=== PATIENT | female | born 1965 | race Two or more races ===

== ENCOUNTER → 2024-05-21 13:38 | Outpatient (BNVA) | payer OTHER, SELFPAY | PROVIDERS: Visit Provider Physician Assistant Surgical ==

== ENCOUNTER 2024-06-11 08:00 | Outpatient (AMB) | payer OTHER, SELFPAY ==
--- NOTE | 2024-06-11 11:01 | A.OFFVIS_ITS ---
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 Allergies No Known Allergies Allergy (Verified 06/11/24 11:01) Medication List - Last Reconciled 06/11/24 by Black Ram MD acetaminophen 500 mg PO Q6H PRN duloxetine mg PO hydrocortisone 2.5% appl topical DAILY levothyroxine 88 mcg PO DAILY meloxicam 15 mg PO DAILY multivitamin (One-A-Day Essential tablet) 1 tab PO DAILY trazodone 200 mg PO BEDTIME PRN triamcinolone acetonide 0.025% 1 appl topical BID HPI HPI 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: Details: Start time: 11.00am, End time: 11.36am ?I spent 31 minutes speaking with the patient on the phone plus an additional 5 minutes reviewing and updating records for a total of 36 minutes HPI Comments Details: Previous weight loss efforts: walking, self diets Wakes up: 7am, Sleeps: 11pm Breakfast: skips Lunch: skips Dinner: 3pm (pork chops, beans) Snacks: 12pm (chips), several after dinner (cereal, toast, crackers) Exercise: stationary bike at home Fluids: coffee: 5 cups/day (cream or sugar), tea: none, soda: Diet coke daily, juice: 1/month (apple juice), ETOH: none PFSH Medical History (Updated 06/11/24 @ 11:05 by Black Ram MD) Depression Hypothyroidism Insomnia DJD (degenerative joint disease) GERD (gastroesophageal reflux disease) Morbid obesity Surgical History (Updated 05/21/24 @ 14:13 by Christiane Francois CMA) Hx of shoulder surgery Hx of bladder repair surgery Family History (Updated 05/21/24 @ 14:14 by Christiane Francois CMA) Mother Thyroid condition Hypertension Father Alcohol abuse Social History (Updated 05/21/24 @ 14:15 by Christiane Francois CMA) Alcohol intake: former Patient Tobacco Use Status: Former Tobacco user Telehealth Telehealth Telehealth Platform: Telephone Location of provider rendering services: practice address Location of patient: address on file Patient Identification confirmed using: Name, : Yes Telehealth method: voice only Patient verbally consented to treatment: Yes Patient verbally consented to billing insurance company: Yes Patient informed of any privacy concerns related to visit: Yes Minutes spent on Phone/Video with Pt.: 36 Assessment & Plan Assessment & Plan (1) Morbid obesity: Code(s): E66.01 - Morbid (severe) obesity due to excess calories Category: Medical Plan: 1.? Plan for lap sleeve gastrectomy. If diaphragmatic or ventral hernias are present at time of surgery, these will be repaired laparoscopically as well. Risks and complications include possible conversion to an open procedure, anastomotic leak, bleeding requiring transfusion, small bowel obstruction, , DVT and pulmonary embolism, cardiac, or pulmonary complications, as intermediate complications such as anastomotic ulcer, insufficient weight loss and vitamin deficiencies. I emphasized the importance of close follow-up, adherence to instructions and good communication. 2. Nutritional counseling. Start with 2 CELEBRATE REBUILD protein (buy at [facility] [employer]) shakes (ONE scoop EACH in 8oz low fat unsweetened almond milk each) at 8am-10am and 11am-1pm, 1 protein bar (CELEBRATE protein bars, buy at [facility] [employer]) at 2pm-4pm, dinner at 5pm (8 forks of protein and 8 forks of salad/vegetables) AND one more protein bar after dinner at 7pm-9pm AND HALF protein bar at 10pm-11pm. So you do 2 protein shakes, 2.5 protein bars and one meal per day. Meal to include lean meat (beef, fish, pork, turkey, chicken), or hungarian yogurt, or egg whites, or beans with a salad with olive oil and fruits (berries, pears, apples, kiwi). Avoid salt, breads, potatoes, rice, pasta, desserts. 3. Each shake would be drunk slowly, like coffee in a period of 2 hours. 4. Cut each bar in 4 pieces and eat each piece in 30min ?to make each bar last 2 hours. 5. I emphasized the importance of measuring accurately the food portion and measure it when serving the food in plate 6. The meal portions include 8 full-size forks of meat and 8 full-size forks of salad. You always eat the meat portion but you can replace up to 4 forks for salad/vegetables with rice, potatoes or pasta, or a fruit ?if you like. The less you do it the better weight loss will be. 7. One full-size fork is what it can be scooped on the fork without falling aside and not what can be bit with the fork. Use regular forks like those you find in a typical restaurant. 8.? Please send me weight measurements as soon as possible and then once a week. Always include your diet and exercise plan. 9. Start stationary bike at a resistance level of 4.0 Increase level by 1.0 every 3 min to a max level of 10.0. Stay at this level for 3 min and then return to level 4.0 and repeat same steps until 300 calories are burned. Velocity target is 12mph and heart rate is 145 bpm. Goal is to burn 2000 calories per week on exercise 10. Goal is to lose at least 1.5-2lbs per week 11. Goal to lose 10% of your weight before surgery, which is about 24lbs. Ultimate weight goal: 220lbs before surgery 12. Please follow the diet plan exactly without any change. If you don't like something about the plan or you feel hungry you need to communicate with me so I can help you revise the plan. You should not change the plan yourself. 13. To be scheduled for EGD due to history of GERD. The possibility of biopsies was discussed. Patient needs to avoid use of NSAIDs and aspirin for 1 week prior to EGD. Risks of perforation and bleeding was discussed with the patient. This will be an outpatient procedure with IV sedation. Orders: Orders Insulin Today E03.9 - Hypothyroidism, unspecified, E66.01 - Morbid (severe) obesity due to excess calories, K21.9 - Gastro-esophageal reflux disease without esophagitis Hemoglobin A1c Today E03.9 - Hypothyroidism, unspecified, E66.01 - Morbid (severe) obesity due to excess calories, K21.9 - Gastro-esophageal reflux disease without esophagitis H Pylori Breath Test Today E03.9 - Hypothyroidism, unspecified, E66.01 - Morbid (severe) obesity due to excess calories, K21.9 - Gastro-esophageal reflux disease without esophagitis Complete Blood Count Auto Diff Today E03.9 - Hypothyroidism, unspecified, E66.01 - Morbid (severe) obesity due to excess calories, K21.9 - Gastro- esophageal reflux disease without esophagitis IRON PROFILE Today E03.9 - Hypothyroidism, unspecified, E66.01 - Morbid (severe) obesity due to excess calories, K21.9 - Gastro-esophageal reflux dis ease without esophagitis Comprehensive Met. Panel Today E03.9 - Hypothyroidism, unspecified, E66.01 - Morbid (severe) obesity due to excess calories, K21.9 - Gastro-esophageal reflux disease without esophagitis Zinc Today E03.9 - Hypothyroidism, unspecified, E66.01 - Morbid (severe) obesity due to excess calories, K21.9 - Gastro-esophageal reflux disease without esophagitis C Reactive Protein Today E03.9 - Hypothyroidism, unspecified, E66.01 - Morbid (severe) obesity due to excess calories, K21.9 - Gastro-esophageal reflux disease without esophagitis TSH reflex Free T4 Today E03.9 - Hypothyroidism, unspecified, E66.01 - Morbid (severe) obesity due to excess calories, K21.9 - Gastro-esophageal reflux disease without esophagitis Vitamin D 25-OH Total Today E03.9 - Hypothyroidism, unspecified, E66.01 - Morbid (severe) obesity due to excess calories, K21.9 - Gastro-esophageal reflux disease without esophagitis US abdomen comp w elastography Today E03.9 - Hypothyroidism, unspecified, E66.01 - Morbid (severe) obesity due to excess calories, K21.9 - Gastro- esophageal reflux disease without esophagitis XR chest 2V Today E03.9 - Hypothyroidism, unspecified, E66.01 - Morbid (severe) obesity due to excess calories, K21.9 - Gastro-esophageal reflux disease without esophagitis ECG 12 lead EKG Today E03.9 - Hypothyroidism, unspecified, E66.01 - Morbid (severe) obesity due to excess calories, K21.9 - Gastro-esophageal reflux disease without esophagitis Lipid Panel Today E03.9 - Hypothyroidism, unspecified, E66.01 - Morbid (severe) obesity due to excess calories, K21.9 - Gastro-esophageal reflux disease without esophagitis Vitamin B12 and Folate Today E03.9 - Hypothyroidism, unspecified, E66.01 - Morbid (severe) obesity due to excess calories, K21.9 - Gastro-esophageal reflux disease without esophagitis Vitamin B1 Today E03.9 - Hypothyroidism, unspecified, E66.01 - Morbid (severe) obesity due to excess calories, K21.9 - Gastro-esophageal reflux disease without esophagitis Vitamin A Today E03.9 - Hypothyroidism, unspecified, E66.01 - Morbid (severe) obesity due to excess calories, K21.9 - Gastro-esophageal reflux disease without esophagitis Ferritin Today E03.9 - Hypothyroidism, unspecified, E66.01 - Morbid (severe) obesity due to excess calories, K21.9 - Gastro-esophageal reflux disease without esophagitis FL upper GI w air Today E03.9 - Hypothyroidism, unspecified, E66.01 - Morbid (severe) obesity due to excess calories, K21.9 - Gastro-esophageal reflux disease without esophagitis Referrals Behavioral Health Referral E03.9 - Hypothyroidism, unspecified, E66.01 - Morbid (severe) obesity due to excess calories, K21.9 - Gastro-esophageal reflux disease without esophagitis Nutrition/Dietitian Referral E03.9 - Hypothyroidism, unspecified, E66.01 - Morbid (severe) obesity due to excess calories, K21.9 - Gastro-esophageal reflux disease without esophagitis
[2024-06-11 11:13] VITALS: BMI 44.5
== END 2024-06-11 11:37 | disposition home or self-care (01) ==
LOC: HO.HBS 08:00
PROVIDERS: Visit Provider Surgery
DX: E66.813 Obesity, class 3 (principal); Z68.41 Body mass index [BMI] 40.0-44.9, adult
CPT/HCPCS: 99443

== ENCOUNTER → 2024-06-11 08:00 | Outpatient (BNVA) | payer OTHER, SELFPAY | PROVIDERS: Visit Provider Surgery ==

== ENCOUNTER 2024-06-14 10:57 | Outpatient (REF) | payer OTHER, SELFPAY ==
[2024-06-14 11:53] LABS: MANUAL DIFF FLAG NO
[2024-06-14 12:21] LABS: Basophils Percent Auto 0.5 % (0-2); Eosinophils Absolute Auto 0.1 X10*3/uL (0.0-0.4); Eosinophils Percent Auto 1.2 % (0-4); Hemoglobin 13.8 g/dl (12.0-16.0); Imm Gran Abs Auto 0.04 X10*3/uL (0.00-0.03); Imm Gran Pct Auto 0.5 % (0.0-0.4); Lymphocytes Absolute Auto 2.1 X10*3/uL (1.2-4.9); Lymphocytes Percent Auto 27.2 % (20-40); Mean Corpuscular HGB Conc 32.1 g/dl (31.0-35.0); Mean Corpuscular Hemoglobin 30.1 pg (27.0-33.0); Mean Corpuscular Volume 93.9 fL (80.0-98.0); Monocytes Absolute Auto 0.5 X10*3/uL (0.1-1.2); Monocytes Percent Auto 6.6 % (2-11); Neutrophils Absolute Auto 4.8 x10*3/uL (2.0-8.3); Platelet Count 287 X10*3/uL (160-400); Red Blood Count 4.58 X10*6/uL (4.20-5.50); Red Cell Distribution Width 12.6 % (11.0-16.0); White Blood Count 7.5 X10*3/uL (4.8-10.8)
[2024-06-14 13:17] LABS: Alanine Aminotransferase 37 U/L (0-31); Albumin Level 4.4 g/dL (3.5-5.0); Alkaline Phosphatase 70 U/L (39-117); Anion Gap 11 (12-20); Aspartate Amino Transferase 23 U/L (5-31); Bilirubin Total 0.4 mg/dL (0.0-1.0); Blood Urea Nitrogen 18 mg/dL (9-16); Calcium 10.3 mg/dL (8.4-10.2); Carbon Dioxide 30 mmol/L (22-29); Chloride 106 mmol/L (96-108); Cholesterol 200 mg/dL (<200); Estimated Glomerular Filt Rate > 60; Glucose Random 106 mg/dL (60-115); HDL Cholesterol 65 mg/dL (>40); Iron 99 mcg/dL (30-160); LDL Cholesterol Calculated 110 mg/dL (<100); Percent Iron Saturation 32 % (15-50); Potassium 4.4 mmol/L (3.3-5.1); Sodium 143 mmol/L (135-145); Total Iron Binding Capacity 314 mcg/dL (228-428); Total Protein 7.7 g/dL (6.5-8.0); Triglycerides 125 mg/dL (<150); Unsaturated Iron Binding 215 ug/dL
[2024-06-14 13:24] LABS: Estimated Average Glucose 114 mg/dL; Hemoglobin A1c % 5.6 % (<6.0); Total Hemoglobin (HGBA1C) 5363.0453 umol/L
[2024-06-14 13:38] LABS: Ferritin 223 ng/mL (10-250); TSH reflex Free T4 4.42 uIU/mL (0.32-4.0); Vitamin D 25-OH Total 31.7 ng/mL (>30)
[2024-06-14 13:40] LABS: Folate 15.1 ng/mL (> or = 4.0); Vitamin B12 336 pg/mL (200-900)
[2024-06-14 15:04] LABS: Free T4 (Free Thyroxine) 1.05 ng/dL (0.71-1.85); Insulin 18 uU/mL (2-29)
[2024-06-18 00:18] LABS: Zinc 94 mcg/dL (60-130)
[2024-06-20 15:39] LABS: Vitamin B1 16 nmol/L (8-30)
[2024-06-22 02:44] LABS: Vitamin A 79 mcg/dL (38-98)
== END 2024-06-14 10:58 | disposition home or self-care (01) ==
LOC: HO.XRAY 10:57
PROVIDERS: Visit Provider Surgery
DX: E66.01 Morbid (severe) obesity due to excess calories (principal); E03.9 Hypothyroidism, unspecified; K21.9 Gastro-esophageal reflux disease without esophagitis
CPT/HCPCS: 36415; 71046; 80053; 80061; 82306; 82607; 82728; 82746; 83036; 83525; 83540; 84425; 84439; 84443; 84590; 84630; 85025; 86140

== ENCOUNTER 2024-06-25 09:38 | Outpatient (REF) | payer OTHER, SELFPAY | END 2024-06-25 09:39 | disposition home or self-care (01) | LOC: HO.US 09:38 | PROVIDERS: Visit Provider Surgery | DX: E66.01 Morbid (severe) obesity due to excess calories (principal); E03.9 Hypothyroidism, unspecified; K21.9 Gastro-esophageal reflux disease without esophagitis | CPT/HCPCS: 76700; 76981 ==

== ENCOUNTER → 2024-06-25 09:40 | Outpatient (BNV) | payer OTHER, SELFPAY | PROVIDERS: Visit Provider Radiology Diagnostic Radiology | DX: E66.01 Morbid (severe) obesity due to excess calories (principal) | CPT/HCPCS: 76700 ==

== ENCOUNTER → 2024-07-23 14:15 | Outpatient (AMB) | payer OTHER, SELFPAY ==
--- NOTE | 2024-07-23 14:10 | A.OFFWM_ITS ---
Intake Intake Visit Reasons: VIDEO BH Intake Allergies No Known Allergies Allergy (Verified 06/11/24 11:01) [facility] Medical History (Updated 08/25/24 @ 09:58 by Candace Leblanc [facility]) Depression Hypothyroidism Insomnia DJD (degenerative joint disease) GERD (gastroesophageal reflux disease) Morbid obesity Surgical History (Updated 05/21/24 @ 14:13 by Christiane Francois CMA) Hx of shoulder surgery Hx of bladder repair surgery Family History (Updated 05/21/24 @ 14:14 by Christiane Francois CMA) Mother Thyroid condition Hypertension Father Alcohol abuse Social History (Updated 05/21/24 @ 14:15 by Christiane Francois CMA) Alcohol intake: former Patient Tobacco Use Status: Former Tobacco user Behavioral Health Assessment Weight Management Therapy Therapy Notes Details PT is a 58 years old female, who presents for initial visit to complete BH assessment as part of surgical weight loss program. PT is still unsure about having weight-loss surgery but her goal is to lose weight, become healthier and being able to maintain what she lose. Presenting Concerns Referral Source WMP-Provider. initial visit with Dr. Krueger on 06/11/2024 Reason for referral Completion of behavioral health assessment as part of process for weight-loss surgery. Precipitating Event Obesity. Initial weight: 243Lbs. Living Situation Current Living Situation Rent At risk of losing current housing? No Satisfied with current living situation? Yes Comments PT lives alone with her dog. Food/Weight/Diet Expectations of change PT started program on 06/11/2024 and had initial visit with Dr. Krueger. Per provider's note initial Goal to lose 10% of your weight before surgery, which is about 24lbs. Ultimate weight goal: 220lbs before surgery. She's expected to loss 1.5-2lbs per week. Patient goals are PT is implementing the following: Current meal plan: 2 protein shakes, 2.5 protein bars and one meal per day. Exercise plan: stationary bike. Daily, goal is to burn 300 calories for total of are burned 2000 calories per week on exercise History/Relationship with food Example of meals before starting the program: Breakfast: Lunch: Dinner: Snacks: Drinks/Liquids: History/Relationship with weight She was always a normal weight in childhood. PT reports 4 years ago she stop smoking and drinking and started compensating with food. Leading to binge, snack and overeat. states that in 2019 she was around 150Lbs, and in between [id number] she started putting weight on. Current weight: 250Lbs is her highest weight. History/Relationship with dieting Different diets and programs. 2022- attended services at [facility] [employer], with a sap bw developer. Attended 2 sessions. didn't lose weight. Social History Family history and relationship PT is . Never had children. Bio-father is . Mom and step-dad (who raised her) are alive. She has total of 8 siblings. PT report good family relationships. Parental/Familial avid editor obligations None Developmental history and status WNL. Social support Sisters, mother. Community support Siblings per [place]. Christianity/Spirituality [employer]ism. 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 Cultural/Ethnic information . [place] Parents born in [place]. Legal Involvement and History Current or historical involvement with the legal system? None reported. Education Highest grade completed 11th grade. GED. Currently enrolled in educational program? No Interested in further educational program? 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 Employment Employment Status Unemployed and Other (Receives Social security 2 years ago.) Wants help to find employment? No Meaningful activities walks, [place]-based activities. Financial Situation Describe current financial situation Comfortable and Occasional struggle Financial assistance? [employer] and Other (Insurance. ) Service Service? No Mental Health and Addiction Treatment Current/Past substance abuse? Yes Comments Alcohol: None currently Cigarettes/Tobacco: None currently Cannabis/Edibles: None. Current/Past addictive behavior concerns? No Psychiatric history PT reports a history of depression, currently stable. But still has mild depressive episodes. She attends outpatient psychiatric services every 2-3 months. PT sees a prescriber/psychiatrist in [facility] and gets prescribed with: - Topiramate 25mg - Trazodone 200mg - Duloxetine 60mg She used to be a heavy drinker 4 years ago. She was drinking daily, at least 10 beers and at least 2 shots of vodka. She was also a heavy smoker, was smoking 1 and a half box at day. PT has had BH crisis in the past but never inpatient for mental health. There is no history and/or current concern about SI/SA and self-harm or other harm. Questionnaires PHQ-9 Over the last 2 weeks, how often have you been bothered by any of the following problems? 1. Little interest or pleasure in doing things: not at all 2. Feeling down, depressed, or hopeless: not at all 3. Trouble falling or staying asleep, or sleeping too much: nearly every day 4. Feeling tired or having little energy: more than half the days 5. Poor appetite or overeating: nearly every day (overeating ) 6. Feeling bad about yourself - or that you are a failure or have let yourself or your family down: several days 7. Trouble concentrating on things, such as reading the newspaper or watching television: more than half the days 8. Moving or speaking so slowly that other people could have noticed. Or the opposite - being so fidgety or restless that you have been moving around a lot more than usual: not at all 9. Thoughts that you would be better off or of hurting yourself in some way: not at all Total score: 11 Depression Screening Interpretation: Positive (Scores from new PT pack, scanned on 06/11/24. New phq-9 will be administered at next visit. ) Depression Screening Done: Yes Source: Developed by Drs. Lj Rao, Tatum Bruno, Dhaval Mckeon and colleagues, with an educational carmen from [employer]. Binge Eating Scale Group 1 A. I don't feel self-conscious about my wt. or body size when I'm with others. B. I feel concerned about how I look to others, but it normally does not make me fell disappointed with myself C. I do get self-conscious about my appearance and wt. which makes me feel disappointed in myself. D. I feel very self-conscious about my wt. and frequently I feel intense shame and disgust for myself. I try to avoid social contacts because of my self- consciousness. Response Group 1: B Group 2 A. I don't have any difficulty eating slowly in the proper manner. B. Although I seem to gobble down foods, I don't end up feeling stuffed because of eating to much. C. At times, I tend to eat quickly and then, I feel uncomfortably full afterwards. D. I have the habit of bolting down my food, without really chewing it. When this happens I usually feel uncomfortably stuffed because I've eaten to much. Response Group 2: B Group 3 A. I feel capable to control my eating urges when I want to. B. I feel like I have failed to control my eating more than the average person. C. I feel utterly helpless when it comes to feeling in control of my eating urges. D. Because I feel so helpless about controlling my eating I have become very desperate about trying to get control. Response Group 3: B Group 4 A. I don't have the habit of eating when I'm bored. B. I sometimes eat when I'm bored, but often I'm able to get busy and get my mind off food. C. I have a regular habit of eating when I'm bored, but occasionally, I can use some other activity to get my mind off eating. D. I have a strong habit of eating when I'm bored. Nothing seems to help me breath the habit. Response Group 4: D Group 5 A. I'm usually physically hungry when I eat something. B. Occasionally, I eat something on impulse even though I really am not hungry. C. I have the regular habit of eating foods, that I might not really enjoy, to satisfy a hungry feeling even though physically, I don't need the food. D. Although I'm not physically hungry, I get a hungry feeling in my mouth that only seems to be satisfied when I eat a food, like sandwich, that fills my mouth. Sometimes, when I eat the food to satisfy my mouth hunger, I then spit the food out so I won't gain weight. Response Group 5: C Group 6 A. I don't feel any guilt or self-hate after I overeat. B. After I overeat, occasionally I feel guilt or self-hate. C. Almost all the time I experience strong guilt or self-hate after I overeat. Response Group 6: B Group 7 A. I don't lose total control of my eating when dieting even after periods when I overeat. B. Sometimes when I eat a forbidden food on a diet, I feel like I blew it and eat even more. C. Frequently, I have the habit of saying to myself, I've blown it now, why not go all the way, when I overeat on a diet. When that happens I eat more. D. I have a regular habit of starting a strict diets for myself but I break the diets by going on an eating binge. My life seems to be either a feast or famine. Response Group 7: B Group 8 A. I rarely eat so much food that I feel uncomfortably stuffed afterwards. B. Usually about once a month, I each such a quantity of food, I end up feeling very stuffed. C. I have regular periods during the month when I eat large amounts of food, either at mealtime or at snacks. D. I eat so much food that I regularly feel quite uncomfortable after eating and sometimes a bit nauseous. Response Group 8: C Group 9 A. My level of calorie intake does not go up very high or go down very low on a regular basis. B. Sometimes after I overeat, I will try to reduce my caloric intake to almost nothing to compensate for the excess calories I've eaten. C. I have a regular habit of overeating during the night. It seems that my routine is not to be hungry in the morning but overeat in the evening. D. In my adult years, I have had week-long periods where I practically starve myself. This follows periods when I overeat. It seems I live a life of either feast or famine. Response Group 9: C Group 10 A. I usually am able to stop eating when I want to. I know when enough is enough. B. Every so often, I experience a compulsion to eat which I can't seem to control. C. Frequently, I experience strong urges to eat which I seem unable to control, but at other times I can control my eating urges. D. I feel incapable of controlling urges to eat. I have a fear of not being able to stop eating voluntarily. Response Group 10: D Group 11 A. I don't have any problem stopping eating when I feel full. B. I usually can stop eating when I feel full but occasionally overeat leaving me feeling uncomfortably stuffed. C. I have a problem stopping eating once I start and usually I feel uncomfortably stuffed after I eat a meal. D. Because I have a problem not being able to stop eating when I want, I sometimes have to induce vomiting to relieve my stuffed feeling. Response Group 11: C Group 12 A. I seem to eat just as much when I'm with others, Family social gatherings as when I'm by myself. B. Sometimes, when I'm with other persons, I don't eat as much as I want to eat because I'm self-conscious about my eating. C. Frequently, I eat only a small amount of food when others are present, because I'm very embarrassed about my eating. D. I feel so ashamed about overeating that I pick times to overeat when I know no one will see me. I feel like a closet eater. Response Group 12: C Group 13 A. I eat three meals a day with only an occasional between meal snack. B. I eat 3 meals a day, but I also normally snack between meals. C. When I am snacking heavily, I get in the habit of skipping regular meals. D. There are regular periods when I seem to be continually eating, with no planned meals. Response Group 13: C Group 14 A. I don't think much about trying to control unwanted eating urges. B. At least some of the time, I feel my thoughts are pre-occupied with trying to control my eating urges. C. I feel that frequently I spend much time thinking about how much I ate or about trying not to eat anymore. D. It seems to me that most of my waking hours are pre-occupied by thoughts about eating or not eating. I feel like I'm constantly struggling not to eat. Response Group 14: B Group 15 A. I don't think about food a great deal. B. I have strong craving for food but they last only for brief periods of time. C. I have days when I can't seem to think about anything else but food. D. Most of my days seem to be pre-occupied with thoughts about food. I feel like I live to eat. Response Group 15: C Group 16 A. I usually know whether or not I'm physically hungry. I take the right portion of food to satisfy me. B. Occasionally, I feel uncertain about knowing whether or not I'm physically hungry. A these times it's hard to know how much food I should take to satisfy me. C. Even though I might know how many calories I should eat, I don't have any idea what is a normal amount of food for me. Response Group 16: C Binge Eating Score: 28 Score less than 17 Minimal Risk Score between 18-26 Moderate Risk Score between 27-46 High Risk Assessment & Plan Assessment & Plan (1) Depression: Code(s): F32.A - Depression, unspecified Qualifiers: Depression Type: major depressive disorder Major depression recurrence: recurrent Major depression episode severity: unspecified Plan Not cleared. We will meet again to finish assessment. PT also, was open about her need for extra support as she is not following meal plan and is still unsure if surgery is the right option for her. Next janes: 08/20/2024 at 2pm, per client's request as she can only do after 2pm. She was offered sooner spaces but she declined. Telehealth Telehealth [facility]health [facility]: [facility] Location of provider rendering services: other Location of patient: address on file Patient Identification confirmed using: Name, : Yes Telehealth method: video Patient verbally consented to treatment: Yes Patient verbally consented to billing insurance company: Yes Patient informed of any privacy concerns related to visit: Yes Minutes spent on Phone/Video with Pt.: 50 Coding Level of Care Code New Pt Tele Psy Diag Yayo ([id number]) Patient Type New Diagnoses Depression F32.A Depression Type: major depressive disorder Major depression recurrence: recurrent Major depression episode severity: unspecified Time Spent (min) 50
--- OUTSIDE RECORDS SUMMARY | 2024-07-23 14:17 | XMS_ITS | Data Portability ---
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 968250496 Active 2018 Elidia Westbrook [facility] 0 15:42:45 History of breast problem 049130991 Completed 10/25/2020 [facility]ading[facility] 1 10:45:02 Bilatera l plantar fasciiti s 25802433497 850808 [facility] 1 14:18:20 Calcanea l spur 39793741 Active ISSA Avendano, [facility] 1 14:18:31 Major depressi on single episode, in partial remissio n 07083144 Active 2021 Gris Clayding-Lin fisher [facility] 2 12:48:46 Steatosi s of liver 491115866 Active 2021 seen on LDCT Gris lipscomb phillip, [facility] 2 12:28:46 Hypothyr oidism 29434759 Active 2021 Gris ClaystarKaryLin deisi phillip [facility] 2 10:59:57 Hyperlip idemia 95616386 Active 2022 Sowmya Ashby, PASUP [address] [address], [place], [address] , [facility] 3 14:01:56 Spasm of muscle of lower back 97443767377 932735 Active 2022 Sowmya Ashby, PASUP [address] [address], [place], [address] , [facility] 3 14:13:46 Psoriasi s 6731895 Active 2022 Sowmya Ashby, PASUP [address] [address], [place], [address] , [facility] 3 15:30:22 Keratosi s pilaris 9425488 Active 2022 Sowmya Ashby, PASUP [address] [address], [place], [address] , [facility] 3 15:31:00 Eruption 988154089 Completed 202203/30/2024 RECORDED 12/05/19 13 4:28PM BY TRUPTI CROWELL MA, ANNOTATI ON/ANIBAL LYONS MD [address] [address], [place], [address] , [facility] 4 08:02:30 Multinod ular goiter 319507292 Active 2023 repeat u/s 12/2024 YENIFER LYONS MD [address], [place], [address] , [facility] 4 17:11:39 Prediabe piyush 175978281 Active 2023 YENIFER LYONS MD [address], [place], [address] , [facility] 4 11:00:49 Morbid obesity 720318560 Active Shantel Bowles MA null, [facility] 4 11:41:18 Benign neoplasm of adrenal gland 62257072 Completed 02/12/2017 Gris fisher, [facility] 7 21:57:21 Adult health examinat ion Completed 02/12/2017 Mariam Freitas MA null, [facility] 7 15:57:20 Screenin g for malignan t neoplasm of breast Completed 02/12/2017 Gris fisher, [facility] 7 21:56:51 Screenin g for malignan t neoplasm of breast Completed 201202/22/2014 IMPRESSI ON: PT WILL SET UP MAMMO; RECORDED 12/05/19 13 4:28PM BY TRUPTI CROWELL MA, ANNOTATI ON/ADDEN DUM Gris fisher, [facility] 7 21:56:51 Breast finding [id number] Completed 201302/22/2014 IMPRESSI ON: BILATERA L, ONLY WHEN EXPRESSE D, NO BLOOD, NL TSH AND PROLACTI N, WILL REFER TO [facility], LEFT MESSAGE FOR PT ON HER MACHINE ABOUT NL LABS AND APPOINTM ENT TO BE BOOKED; RECORDED 12/01/19 14 4:32PM BY ZULMA EMMANUEL MA, ANNOTATI ON/ADDEN DUM MYA Baker [address], [place], [address] , [facility] 6 10:19:41 Kidney stone 43824038 Com[facility]12[facility]2017 [facility] 7 21:57:27 Carpal tunnel syndrome 42652330 Completed 02/12/2017 Gris fisher, [facility] 7 21:57:08 Screenin g for malignan t neoplasm of cervix Completed 201302/22/2014 RECORDED 12/01/19 14 4:32PM BY ZULMA EMMANUEL MA, ANNOTATI ON/ADDEN DUM Sowmya Ashby, [facility] [address], [place], [address] , [facility] 6 10:19:41 Chest pain 21160082 Completed 201302/22/2014 RECORDED 12/01/19 14 4:32PM BY ZULMA EMMANUEL MA, HORACIO ON/ADDEN DUM Sowmya Ashby, [facility] [address], [place], [address] , [facility] 6 10:19:41 Conjunct ivitis 9925695 Completed 201302/22/2014 RECORDED 12/01/19 14 4:32PM BY ZULMA EMMANUEL MA, HORACIO ON/ADDEN DUM Sowmya Ashby, PASUP [address], [place], [address] , [facility] 6 10:19:41 Constipa tion 83498936 Completed 201202/22/2014 IMPRESSI ON: CT SHOWED THIS. TAKE MIRALX FOR 1 WEEK. PER PT HX SHE DOES NOT HAVE CHRONIC CONSTIPA TION; RECORDED 12/05/19 13 4:28PM BY TRUPTI CROWELL MA, ANNOTATI ON/ADDEN DUM Sowmya Ashby, PASUP [address], [place], [address] , [facility] 6 10:19:41 Cough 85284513 Completed 201202/22/2014 IMPRESSI ON: WILL GET SPIROMET RY TO ASSESS SAPPHIRE FUNCTION AFTER SMOKING FOR SO LONG, REVIEWED WITH PT, NO INHALERS NEEDED, PT TO QUIT BEFORE NEXT YEAR, NO NEED FOR CXR, NO CONSISTE NT COUGH; RECORDED 12/05/19 13 4:28PM BY TRUPTI CROWELL MA, HORACIO ON/ANIBAL Ashby, [facility] [address] [facility] [address], [place], [address] , [facility] 6 10:19:41 Tobacco dependen ce syndrome 99445179 Completed 10/02/2016 [facility] 7 11:23:26 Dysuria 16183172 Completed 201202/22/2014 IMPRESSI ON: I DOUBT THE DYSURIA AND BACK PAIN ARE CONNECTE D. ALTHOUGH OUR UA IS NORMAL I WOULD STILL LIKE TO TREAT EMPIRICA LLY FOR UTI IN CASE THE 2 ARE RELATED. ; RECORDED 12/05/19 13 4:27PM BY TRUPTI CROWELL MA, ANNOTATI ON/ANIBAL Ashby, [facility] [address] [address], [place], [address] , [facility] 6 10:19:41 Elevated blood-pr essure reading without diagnosi s of hyperten mayur 674133512 Completed 201302/22/2014 RECORDED 12/18/19 14 9:29AM BY TRUPTI CROWELL MA, ANNOTATI ON/ANIBAL Ashby, [facility] [address] [address], [place], [address] , [facility] 6 10:19:41 Malaise and fatigue 255979047 Completed 201302/22/2014 IMPRESSI ON: CHECK LABS; RECORDED 12/01/19 14 4:32PM BY ZULMA EMMANUEL MA, RITAATI ON/ADDEN DUM Sowmya Ashby, PASUP [address], [place], [address] , [facility] 6 10:19:41 General examinat ion of patient Completed 200902/22/2014 DATE: 09/01/19 10; RECORDED 12/05/19 13 4:28PM BY TRUPTI CROWELL MA, HORACIO ON/ADDEN DUM [facility]antel Bowles [facility] 7 11:22:52 Well child 072447498 Completed 201202/22/2014 RECORDED 12/05/19 13 4:27PM BY TRUPTI CROWELL MA, HORAICO ON/ADDEN DUM Sowmya Ashby, [facility] [address] [facility], [place], [address] , [facility] 6 10:19:41 Blood in urine 22492443 Completed 201202/22/2014 IMPRESSI ON: RECHECK URINE, NEG HERE , NO FURTHER WORKUP IF ALL OK; RECORDED 12/05/19 13 4:28PM BY TRUPTI CROWELL MA, HORACIO ON/ADDEN DUM Sowmya Ashby, [facility] [address] [facility], [place], [address] , [facility] 6 10:19:41 Pure hypercho lesterol emia 206415328 Completed 201202/22/2014 RECORDED 12/05/19 13 4:28PM BY TRUPTI CROWELL MA, HORACIO ON/ADDEN DUM Sowmya Ashby, [facility] [address] [facility], [place], [address] , [facility] 6 10:19:40 Viral labyrint hitis 150104344 Completed 201202/22/2014 RECORDED 12/05/19 13 4:28PM BY TRUPTI CROWELL MA, HORACIO ON/ADDEN DANDY Ashby, [facility] [address], [place], [address] , [facility] 6 10:19:41 Left lower quadrant pain 278196670 Completed 201202/22/2014 IMPRESSI ON: WORSENIN G. RADIATES TO GROIN AND ANTERIOR THIGH. UNCLEAR CAUSE FOR HER PAIN. DDX IS L2/L3 LUMBAR RADICULO MAHIN, UROLITHI ASIS, OR DIVERTIC ULITIS/O THER COLORECT AL ISSUE. WOULD ALSO CONSIDER ADHESION S WITH HER ABDOMINA L SURGERY A CHILD. UNFORTUN ATELY SHE DOES NOT KNOW WHAT KIND OF SURGERY WAS DONE. WILL DO CT TO LOOK FOR STONE OR DIVERTIC ULITIS. WILL GET DONE TODAY.; RECORDED 12/05/19 13 4:28PM BY TRUPTI CROWELL MA, HORACIO ON/ADDMILENA Ashby, [facility] [address] [facility], [place], [address] , [facility] 6 10:19:41 Sciatica 30086328 Completed 201202/22/2014 IMPRESSI ON: SHE HAS HX UROLITHI ASIS. DOUBT THIS SINCE PAIN RADIAETE S TO LEG, HAS NO RBC IN URINE. SHE ALSO SAYS THIS DOES NOT FEEL LIKE PREVIOUS STONE PAIN.; RECORDED 12/05/19 13 4:28PM BY TRUPTI CROWELL MA, HORACIO ON/ADDMILENA Ashby, [facility] [address] [facility], [place], [address] , [facility] 6 10:19:41 Low back pain 551199599 Completed 02/12/2017 Gris fisher, [facility] 7 21:56:53 Breast lump 07744311 Completed 201202/22/2014 RECORDED 12/05/19 13 4:28PM BY TRUPTI CROWELL MA, HORACIO ON/ADDMILENA Ashby, [facility] [address], [place], [address] , [facility] 6 10:19:41 Lupus erythema tosus 644527552 Completed 10/25/2020 Gris fisher, [facility] 1 10:45:09 Influenz a vaccine needed 16598793422 06 Completed 201102/22/2014 RECORDED 11/01/19 12 10:59AM BY SHANTEL BOWLES, OFFICE VISIT Sowmya Ashby, [facility] [address], [place], [address] , [facility] 6 10:19:41 Blephari tis 02746573 Completed 201202/22/2014 RECORDED 12/05/19 13 4:28PM BY TRUPTI CROWELL MA, ANNOTATI ON/ADDEN DUM Sowmya Ashby, [facility] [address] [address], [place], [address] , [facility] 6 10:19:41 Multiple joint pain 30864546 Completed 201202/22/2014 IMPRESSI ON: PT WITH SEVERAL MONTHS OF GENERALI ZED ARTHALGI AND FATIGUE, SOME MUSCLE INVOLVME NT. BEING TXED FOR DISCOID LUPUS, DOES REPORT FEELING INCREDIB LY BETTER WHEN ON PREDNISO NE. COULD REPRESEN T PART OF LUPUS / AUTOIMMU NE PROCESS VS NEWER ONSET FIBRO. GIVEN HER HX I BELIEVE IT WOULD BE DIFFICUL T INTERPRE TING LABS, BETTER LEFT TO RHEUM. WILL ARRANGE APPT AND CONTACT PT WITH TIME AND DATE.; RECORDED 12/05/19 13 4:28PM BY TRUPTI CROWELL MA, ANNOTATI ON/ADDEN DUM Dejuan Bellamy PA-C [address] [facility] [address], [place], [address] , [facility] 8 20:31:23 Eruption 356063299 Completed 201202/22/2014 RECORDED 12/05/19 13 4:28PM BY TRUPTI CROWELL MA, ANNOTATI ON/ADDMILENA LYONS MD [address] [facility] [address], [place], [address] , [facility] 4 08:02:30 Adult health examinat ion Completed 201202/22/2014 IMPRESSI ON: PAP AND MAMMO UTD, IS ACTIVE WITH CLEANING , NEEDS TO DO SOME WALKING OFR EXERCISE ; RECORDED 12/05/19 13 4:28PM BY TRUPTI CROWELL MA, HORACIO ON/ANIBAL fisher, [facility] 7 15:57:20 External hordeolu m 5281205 Completed 201302/22/2014 IMPRESSI ON: STOP CIPRO OPTHALMI C DROPS ADN USE OINTMENT FOR STYE, HOT COMPRESS ES OK TO RETURN TO WORK 04/19; RECORDED 12/01/19 14 4:32PM BY ZULMA EMMANUEL MA, HORACIO ON/MYA Cisneros [address] [facility] [address], [place], [address] , [facility] 6 10:19:41 Increase d frequenc y of urinatio n 156130196 Completed 10/02/2016 ISSA Smallwood, [facility] 7 11:22:48 Function al visual loss 772181281 Completed 02/12/2017 Gris fisher [facility] 7 21:56:56 Vitamin D deficien cy 54135661 Completed 201202/22/2014 RECORDED 12/05/19 13 4:27PM BY TRUPTI CROWELL MA, HORACIO ON/MYA Cisneros [address] [facility] [address], [place], [address] , [facility] 6 10:19:40 Problem Notes None recorded. Procedures Surgical History Date Name Laterality Status Provider Name and Address Organization Details Recorded Time 09/18/19 24 Most Recent Mammogram completed Aisha Alatorre [facility] 09/18/2023 13:36:11 05/11/20 22 Date of Last Pap Smear completed MYA Baker [address] [facility] [address], [place], [address], [facility] 01/24/2023 14:10:01 05/16/20 21 Mammogram screening completed Nallely Johnson [facility] 06/25/2021 14:47:08 06/18/20 19 insertion of catheter into spinal canal for infusion of therapeutic substance completed Rubi Edwards MA [facility] 01/24/2023 13:37:51 06/18/20 18 primary fusion of cervical spine completed Elidia Westbrook [facility] 07/08/2018 13:21:00 10/23/19 18 Carpal tunnel surgery completed Elidia Westbrook [facility] 11/04/2017 15:07:26 09/24/19 18 Carpal tunnel surgery completed Elidia Westbrook [facility] 11/04/2017 15:07:33 11/08/19 17 Egd diagnostic brush wash completed Elidia Westbrook [facility] 12/03/2016 15:48:33 06/27/20 15 Date of Last Colonoscopy completed Mariam Freitas MA [facility] 02/12/2017 16:09:58 06/27/20 15 Colonoscopy completed Mariam Freitas MA [facility] 02/12/2017 16:09:48 Carpal tunnel surgery completed Rubi Edwards MA [facility] 01/24/2023 13:38:48 Other completed Mariam Freitas MA [facility] 06/24/2014 09:46:30 Imaging Results Imaging Date Name Status LastModified by Organiz ation Details LastModified Time 01/26/2024 CT chest ldct lung program completed [facility] (Out[facility]) [address] [facility], [place], [address], 01/27/2024 11:54:29 01/31/2024 LDCT, chest, for lung cancer screening completed [facility] [address] [facility], [place], [address], 02/14/2024 08:21:29 Procedure Notes None recorded. Medical Equipment None Reported. Allergies Allergen ID Allergen Name Allergen Category Reaction Reaction Severity Criticality Documentation Date Start Date Code Code System Note Provider Name and Address Organization Details Recorded Time 2181 Shellfish (substanc e) food,medi cation other Not available Not available 02/22/2014 43134 9006 SNOMED ISSA Smallwood, [facility] 2 09:18:13 2182 sulfameth oxazole medicatio n hives Not available Not available 02/22/2014 22051 RxNorm ISSA [place], [facility] 2 09:51:45 96835 gabapenti n medicatio n Not available Not available Not available 05/02/2023 53935 RxNorm cause d sedat ion Zulma ISSA [place], [facility] 3 15:17:48 Medications Name Sig Start Date Stop Date Status Note LastModified by Organization Details LastModified Time omeprazol e 20 mg cpdr active Not Available Not Available Not Available lorazepam 0.5 mg tabs active Not Available Not Available Not Available peg-3350/ nacl/na bicarbona te/kcl 420 gm solr active Not Available Not Available Not Available cyclobenz aprine 10 mg tablet 1 THREE TIMES DAILY, NEEDED 02/12 completed Not Available Not Available Not Available tretinoin 0.1 % topical cream 02/12 completed Not Available Not Available Not Available amoxicill in 500 mg capsule 08/09 completed Not Available Not Available Not Available metformin 500 mg tablet TAKE 1 TABLET BY MOUTH DAY WITH FOOD active Not Available Not Available No t Available doxycycli ne hyclate 100 mg capsule BID 04/15 completed RECORDED 04/15/20 08 3:34PM BY ISSA ABRAMS, OFFICE VISIT; Not Available Not Available Not Available ibuprofen 800 mg tablet 1 po qd as needed 10/06 completed Not Available Not Available Not Available tizanidin e 4 mg tablet Take 1 tablet every 8 hours by oral route as needed. 07/29 completed Not Available Not Available Not Available hydrocodo ne 5 mg-acetam inophen 325 mg tablet AT BEDTIME NEEDED 08/07 completed RECORDED 12/01/19 14 4:29PM BY ANITA Pitt MD, MEDICATI ON AUTO-MARGARITO CTIVATIO N; Not Available Not Available Not Available tretinoin 0.025 % topical cream 03/06 completed Not Available Not Available Not Available clotrimaz ole-betam ethasone 1 %-0.05 % lotion 03/29 completed Not Available Not Available Not Available meloxicam 15 mg tablet TAKE 1 TABLET BY MOUTH EVERY DAY active Not Available Not Available No t Available prednison e 20 mg tablet 10/02 completed Not Available Not Available Not Available tretinoin 0.05 % topical cream 10/02 completed Not Available Not Available Not Available sulfameth oxazole 800 mg-trimet hoprim 160 mg tablet TWO TIMES DAILY 2011 active RECORDED 12/02/19 12 2:13PM BY DANNI GEORGE, OFFICE VISIT; Not Available Not Available Not Available omeprazol e 40 mg capsule,d elayed release Take 1 capsule every day by oral route for 30 days. 07/29 completed Not Available Not Available Not Available tramadol 50 mg tablet Take 1 tablet every 6 hours by oral route for 7 days. 10/06 completed Not Available Not Available Not Available triamcino lone acetonide 0.1 % topical cream APPLY THIN COAT TO AFFECTED AREA TWICE A DAY 03/29 completed Not Available Not Available Not Available Macrobid 100 mg capsule TWO TIMES DAILY 12/06 completed RECORDED 12/09/19 12 9:06AM BY MELINDA MENDENHALL MA, MEDICATI ON AUTO-MARGARITO CTIVATIO N; Not Available Not Available Not Available oxycodone -acetamin ophen 5 mg-325 mg tablet Take 2 tablets every 4 hours by oral route as needed. 07/29 completed Not Available Not Available Not Available levothyro xine 88 mcg tablet TAKE 1 TABLET BY MOUTH EVERY DAY 2023 active Not Available Not Available Not Avai lable amitripty line 25 mg tablet Take by oral route for 30 days. 06/30 completed Not Available Not Available Not Available lorazepam 0.5 mg tablet TAKE FIRST DOSE 1 HOUR PRIOR TO PROCEDUR E. YOU MAY REPEAT DOSE 30 MINS PRIOR TO PROCEDUR E IF NEEDED. 11/05 completed Not Available Not Available Not Available triamcino lone acetonide 0.025 % topical cream PLEASE SEE ATTACHED FOR DETAILED DIRECTIO NS 03/30 completed Not Available Not Available Not Available gentamici n 0.3 % eye drops THREE TIMES DAILY 05/06 completed RECORDED 05/16/20 08 5:59PM BY BEATRICE IVAN, MEDICATI ON AUTO-MARGARITO CTIVATIO N; Not Available Not Available Not Available trazodone 100 mg tablet TAKE 2 TABLETS BY MOUTH AT BEDTIME active Not Available Not Available No t Available ciproflox acin 0.3 % eye drops PLEASE SEE ATTACHED FOR DETAILED DIRECTIO NS 03/01 completed Not Available Not Available Not Available econazole 1 % topical cream APPLY TO THE AFFECTED AND SURROUND ING AREAS OF SKIN BY TOPICAL ROUTE 2 TIMES PER DAY active Not Available Not Available No t Available pantopraz ole 40 mg tablet,de layed release DAILY 03/12 completed RECORDED 03/15/20 10 1:04PM BY MARIANA ISIDRO MEDICATI ON AUTO-MARGARITO CTIVATIO N; Not Available Not Available Not Available erythromy luz maria 5 mg/gram (0.5 %) eye ointment QID 04/22 completed RECORDED 08/02/20 13 10:57AM BY GRIS Iglesias MD, MEDICATI ON AUTO-MARGARITO CTIVATIO N; Not Available Not Available Not Available fluocinol one 0.01 % topical body oil APPLY TO THE AFFECTED AREA(S) BY TOPICAL ROUTE 3 TIMES PER DAY 02/12 completed Not Available Not Available Not Available ibuprofen 200 mg tablet Take 3 tablets every 6 hours by oral route. 10/31 completed Not Available Not Available Not Available gabapenti n 300 mg capsule Take 1 capsule 3 times a day by oral route for 30 days. 09/04 completed Not Available Not Available Not Available magnesium citrate oral solution 07/21 completed Not Available Not Available Not Available hydrocort isone 2.5 % topical cream APPLY THIN COAT TO AFFECTED AREA TWICE A DAY active Not Available Not Available No t Available hydroxyzi ne HCl 25 mg tablet TAKE 1 TABLET BY MOUTH EVERY 12 HOURS NEEDED ONLY 03/01 completed Not Available Not Available Not Available ammonium lactate 12 % topical cream APPLY 1 APPLICAT ION TOPICALL Y TWICE A DAY DIRECTED FOR 30 DAYS active Not Available Not Available No t Available codeine 10 mg-guaife nesin 100 mg/5 mL oral liquid Take 10 mL every 4 hours by oral route for 5 days. 10/27 completed Not Available Not Available Not Available gabapenti n 100 mg capsule TAKE 1 CAPSULE BY MOUTH THREE TIMES A DAY DIRECTED 05/02 completed Not Available Not Available Not Available clobetaso l 0.05 % topical ointment APPLY THIN COAT TO AFFECTED AREA TWICE A DAY 2023 active Not Available Not Available Not Avai lable lorazepam 1 mg tablet TAKE ONE TABLET ONE HOUR PRIOR TO THE PROCEDUR E. 08/02 completed Not Available Not Available Not Available polyethyl amna glycol 3350 17 gram/dose oral powder Take 17 g every day by oral route for 30 days. 02/12 completed Not Available Not Available Not Available methylpre dnisolone 4 mg tablets in a dose pack Take 1 dose pk by oral route. 05/25 completed Not Available Not Available Not Available betametha sone dipropion ate 0.05 % topical ointment TWO TIMES DAILY 12/04 completed RECORDED 12/05/19 13 4:33PM BY TRUPTI CROWELL MA, OFFICE VISIT; Not Available Not Available Not Available metformin ER 500 mg tablet,ex tended release 24 hr TAKE 1 TABLET BY MOUTH EVERY DAY active Not Available Not Available No t Available dicyclomi ne 10 mg capsule TAKE 1 CAPSULE BY MOUTH THREE TIMES A DAY 04/21 completed Not Available Not Available Not Available naproxen 500 mg tablet Take 1 tablet twice a day by oral route as needed for 15 days. 05/25 completed Not Available Not Available Not Available diazepam 5 mg tablet TAKE 1-2 TABS 1 H[address] BEFORE MRI DO NOT DRIVE WHILE ON THIS MEDICATI ON DIRECTED 04/21 completed Not Available Not Available Not Available oxycodone 5 mg tablet TAKE 1TABLET EVERY 4 6 HOURS NEEDED PLEASE DONT DRIVE WHILE ON THIS MEDICATI ON 04/21 completed Not Available Not Available Not Available One A Day tablet Take 1 tablet every day by oral route. 10/31 completed Not Available Not Available Not Available cyclobenz aprine 5 mg tablet TAKE 1 TABLET BY MOUTH EVERY DAY AT BEDTIME NEEDED FOR 30 DAYS 06/26 completed Not Available Not Available Not Available Readi-Cat 2 2.1 % (w/v), 2.0 % (w/w) oral suspensio n Take 450 mL twice a day by oral route as directed for 1 day. 10/02 completed Not Available Not Available Not Available amoxicill in 500 mg-clarit hromycin 500 mg-lansop razole 30 mg combo pack Take 1 pack twice a day by oral route for 10 days. 02/12 completed Not Available Not Available Not Available duloxetin e 30 mg capsule,d elayed release Take 1 capsule twice a day by oral route with meals for 30 days. 10/19 completed Not Available Not Available Not Available duloxetin e 60 mg capsule,d elayed release TAKE 2 CAPSULES (120 MG) BY MOUTH DAILY AFTER BREAKFAS T active Not Available Not Available No t Available hydroxyzi ne HCl 2 mg 1 po qd 03/09 completed Not Available Not Available Not Available naproxen TWO TIMES DAILY, NEEDED 08/17 completed RECORDED 12/01/19 14 4:29PM BY ANITA [email or web address] MD, MEDICATI ON AUTO-MARGARITO CTIVATIO N; Not Available Not Available Not Available Miralax DAILY 01/04 completed RECORDED 06/22/20 12 8:21AM BY DANNI GEORGE, MEDICATI ON AUTO-MARGARITO CTIVATIO N; Not Available Not Available Not Available ProAir HFA 90 mcg/actua tion aerosol inhaler INHALE 2 PUFFS INTO THE LUNGS EVERY 4 TO 6 HOURS NEEDED FOR 30 DAYS active Not Available Not Available No t Available diclofena c 1 % topical gel active Not Available Not Available Not Available Vagifem 10 mcg vaginal tablet Insert 1 tablet every day by vaginal route for 14 days. 07/29 completed Not Available Not Available Not Available Aleve 220 mg capsule Take 2 capsules every day by oral route. 06/30 completed Not Available Not Available Not Available Flucelvax Quad 60 mcg (15 mcg x 4)/0.5 mL intramusc ular susp PHARMACY ADMINIST ERED 09/08 completed Not Available Not Available Not Available BinaxNOW COVID-19 Ag Self Test kit FOLLOW PACKAGE DIRECTIO NS 06/26 completed Not Available Not Available Not Available Wegovy 0.25 mg/0.5 mL subcutane ous pen injector Inject by subcutan eous route for 28 days. active Not Available Not Available No t Available Metamucil (with sugar) 3 gram/7 gram oral powder Take 7 g every day by oral route. 05/02 completed Not Available Not Available Not Available Paxlovid 300 mg (150 mg x 2)-100 mg tablets in a dose pack TAKE 3 TABLETS TWICE A DAY BY ORAL ROUTE DIRECTED FOR 5 DAYS. 03/21 completed Not Available Not Available Not Available Zepbound 2.5 mg/0.5 mL subcutane ous pen injector Inject by subcutan eous route for 28 days. 03/30 completed Not Available Not Available Not Available Vitals Date Recorded Body height Body mass index (BMI) Body weight Heart rate Oxygen saturation Oxygen saturation in Arterial blood by Pulse oximetry Body temperature Systolic blood pressure Diastolic blood pressure Provider Name and Address Organization Details Last Updated DateTime 4 157.48 cm 43.9 kg/m2 327269. 17 g 78 /min 95 % 95 % 97.6 [degF] 122 mm[Hg] 71 mm[Hg] Tanna Moncada [facility] [place] 4 14:47:44 Date Recorded Body height Body mass index (BMI) Body weight Heart rate Oxygen saturation Oxygen saturation in Arterial blood by Pulse oximetry Systolic blood pressure Diastolic blood pressure Provider Name and Address Organization Details Last Updated DateTime 4 157.48 cm 44.3 kg/m2 109293. 35 g 73 /min 98 % 98 % 135 mm[Hg] 80 mm[Hg] Zulma rubi MA [facility] 4 11:17:00 Date Recorded Body height Body mass index (BMI) Body weight Provider Name and Address Organization Details Last Updated DateTime 03/01/2024 157.48 cm 44.3 kg/m2 943258.35 g Shantel Bowles MA [facility] 03/01/2024 14:10:12 Date Recorded Body height Body mass index (BMI) Body weight Oxygen saturation Oxygen saturation in Arterial blood by Pulse oximetry Heart rate Body temperature Systolic blood pressure Diastolic blood pressure Provider Name and Address Organization Details Last Updated DateTime 4 157.48 cm 44.5 kg/m2 566575. 75 g 97 % 97 % 78 /min 97.5 [degF] 120 mm[Hg] 71 mm[Hg] Shantel Bowles MA [facility] 4 10:26:04 Date Recorded Body height Body mass index (BMI) Body weight Oxygen saturation Oxygen saturation in Arterial blood by Pulse oximetry Heart rate Body temperature Systolic blood pressure Diastolic blood pressure Provider Name and Address Organization Details Last Updated DateTime 157.48 cm 45.6 kg/m2 283573. 2 g 97 % 97 % 82 /min 97.6 [degF] 117 mm[Hg] 69 mm[Hg] Shantel Bowles MA [facility] 4 13:49:00 Social History Question Answer Notes LastModified by Organizat ion Details LastModified Time Tobacco Smoking Status Former Smoker quit January 09 2019 ISSA Pradhan [facility] 03/01/2021 14:09:31 Do You Have An Advance Directive? No None In Chart Information not available 06/26/2022 What Is Your Level Of Alcohol Consumption? None Quit Drinking [email or web address] Information not available 04/21/2020 Is Blood Transfusion Acceptable In An Emergency? No Information not available 02/12/2017 What Is Your Level Of Caffeine Consumption? Occasional Coffee [email or web address] Information not available 01/24/2023 How Much Tobacco Do You Chew? None Information not available 03/01/2021 Are You Currently Employed? No Information not available 03/01/2021 What Type Of Diet Are You Following? REGULAR [email or web address] Information not available 12/19/2014 Which Illicit Or Recreational Drugs Have You Used? None Information not available 04/05/2017 Do You Or Have You Ever Used E-cigarettes Or Vape? 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 1-5yearssince lastcigarette Information not available 03/01/2021 Live Alone Or With Others? Alone Information not available 06/26/2022 Do You Take Precautions To Prevent Distracted Driving? No Information not available 03/01/2021 How Often Do You Need To Have Someone Help You When You Read Instructions, Pamphlets, Or Other Written Material From Your Doctor Or Pharmacy? Sometimes Information not available 03/01/2021 Have You Served In The ? No Information not available 02/12/2017 Have You Or Anyone In Your Household Had Any Of The Following Symptoms In The Last 14 Days: Sore Throat, Cough, Chills, Body Aches For Unknown Reasons, Shortness Of Breath For Unknown Reasons, Loss Of Smell, Loss Of Taste, Fever At Or Greater Than 100 Degrees Fahrenheit? No Information not available 04/21/2020 Are You Or Anyone In Your Household A Health Care Provider Or Emergency Responder? No [email or web address] Information not available 04/21/2020 To The Best Of Your Knowledge Have You Been In Close Proximity To Any Individual Who Tested Positive For COVID-19? No [email or web address] Information not available 04/21/2020 Have You Recently Traveled To A COVID-19 High Risk Area Or Gathering In The Last 10 Days? No [email or web address] Information not available 09/08/2020 What Was The Date Of Your Most Recent Tobacco Screening? 03/30/2024 [email or web address] Information not available 03/30/2024 How Many Children Do You Have? 0 [email or web address] Information not available 12/19/2014 What Is Your Current Pack Years? [email or web address] Information not available 06/26/2022 Do You Use Protection During Sex? No Information not available 03/01/2021 Seat Belts Used Routinely Yes Information not available 06/26/2022 Are You Sexually Active? No Information not available 03/01/2021 Smoke Alarm In Home Yes Information not available 06/26/2022 At What Age Did You Start Smoking Tobacco? 27 [email or web address] Information not available 12/19/2014 Are You Passively Exposed To Smoke? No Information not available 02/12/2017 Do You Or Have You Ever Used Smokeless Tobacco? Never Used Smokeless Tobacco [email or web address] Information not available 10/20/2019 General Stress Level Medium [email or web address] Information not available 03/30/2024 Do You Use Any Illicit Or Recreational Drugs? No Information not available 06/26/2022 Do You Use Sunscreen Routinely? No Information not available 03/01/2021 How Many Years Have You Smoked Tobacco? 24 Information not available 04/05/2017 Do You Or Have You Ever Used Any Other Forms Of Tobacco Or Nicotine? No Information not available 05/02/2023 Sex: Unknown Functional Status Question Answer Note LastModified by Organizat ion Details LastModified Time Are you able to walk? [email or web address] Information not available 06/26/2022 Are you able to care for yourself? Yes [email or web address] Information not available 12/19/2014 What is your exercise level? Occasional Information not available 03/01/2021 Mental Status None recorded. Family History Relationship Description Onset Age of this Age Resolved Age Notes LastModified by Organization Details LastModified Time Mother General health good Not available 06/11 08:32:11 Father General health good Not available 06/11 08:32:12 Sister Herpes [email or web address] Not available 2021 08:32:12 Sister Herpes [email or web address] Not available 2021 08:32:12 Unspecified Relation Depressive disorder [email or web address] Not available 03/01/2021 14:06:41 Notes:No colon or breast can cer in family Medical History Condition Response Other N Gout N Kidney Stones N Blood Diseases N Hyperthyroidism N Breast Cancer N Hypothyroidism N Lung Disease N COPD N Depression Y Defects or Inherited Disease N Anesthesia Complications N Headaches/Migraines N Varicose Veins N Anxiety Disorder Y Obesity N Vision or Eye Problems Y Arthritis N Head Injury/Concussion N Infertility N Polyps N Congenital Anomalies N Acid Reflux (GERD) Y Cancer N Stroke N ADHD N Endometriosis N High Cholesterol N Liver Disease N Fibromyalgia N Kidney Disease N Heart Problems N Ear or Hearing Problems N Hospitalizations N Thyroid Problems N GI Problems N Acne N Eating Disorder Y Skin Problems N Anemia N Constipation N Bladder Problems Y Mental Illness N Ovarian Cancer N Diabetes N Blood Transfusions N Seizures/Epilepsy N Tuberculosis N AIDS/HIV N Congestive Heart Failure (CHF) N Eczema N Diverticulitis N Abuse/Domestic Violence N Asthma N Allergies N Reflux/GERD N Hepatitis N Pulmonary Embolism N Hypertension N Chicken Pox N Autism Spectrum Disorder (ASD) N Osteoporosis N Gynecological History Statement/Question Response Menses Monthly N Date of Last Pap Smear 05/11/2022 Date of Last Colonoscopy 06/27/2015 Most Recent Mammogram 09/18/2023 Obstetrics History GPAL:G 0 P 0 0 0 0 Immunizations Vaccine Type Date Status Note Provider Name and Address Organization Details Recorded Time COVID-19, mRNA, LNP-S, PF, 100 mcg/0.5mL dose or 50 mcg/0.25mL dose 021 completed ISSA Crockett [facility] 08/09/2021 11:20:39 COVID-19, mRNA, LNP-S, PF, 100 mcg/0.5mL dose or 50 mcg/0.25mL dose 021 completed ISSA Crockett [facility] 08/09/2021 11:20:39 Influenza, MDCK, quadrivalent, preservative 020 completed ISSA Crockett [facility] 08/09/2021 11:20:39 COVID-19, mRNA, LNP-S, PF, 100 mcg/0.5mL dose or 50 mcg/0.25mL dose 021 completed ISSA Crockett [facility] 08/09/2021 11:20:39 Influenza, split virus, quadrivalent, PF [facility]21 [facility] 11:20:39 COVID-19, mRNA, LNP-S, PF, 100 mcg/0.5mL dose or 50 mcg/0.25mL dose 022 completed ISSA [place], [facility] 03/21/2022 10:07:39 Tdap 018 [facility]22 10:13:19 Influenza, MDCK, quadrivalent, PF 022 [facility] 06/26/2022 09:29:36 COVID-19, mRNA, LNP-S, bivalent, PF, 50 mcg/0.5 mL or 25mcg/0.25 mL dose 022 [facility] 06/26/2022 09:29:36 zoster recombinant 023 [facility]23 13:29:38 Pneumococcal conjugate PCV20, polysaccharide [id number] conjugate, adjuvant, PF 023 [facility]/24/2023 13:29:38 Influenza, MDCK, quadrivalent, PF 023 completed ISSA [place], [facility] 05/02/2023 15:09:33 zoster recombinant 023 completed ISSA [place], [facility] 05/02/2023 15:09:34 COVID-19, mRNA, LNP-S, PF, beba-sucrose, 30 mcg/0.3 mL 023 completed ISSA Smallwood [facility] 06/18/2023 15:35:45 COVID-19, mRNA, LNP-S, PF, 50 mcg/0.5 mL 024 completed ISSA [place], [facility] 05/11/2024 13:42:29 Influenza, MDCK, trivalent, PF 024 completed ISSA [place], [facility] 05/11/2024 13:42:29 Td (adult), 2 Lf tetanus toxoid, preservative free, adsorbed 007 completed Elidiareza fisher, [facility] 01/26/2020 15:42:41 Influenza, split virus, quadrivalent, PF 017 cancelled patient objection Not Available [facility] 08/28/2019 02:22:07 Influenza, split virus, quadrivalent, PF 018 cancelled patient objection Not Available [facility] 08/28/2019 02:22:15 Influenza, split virus, quadrivalent, PF 019 cancelled patient objection Not Available [facility] 08/28/2019 02:22:10 Past Encounters Encounter ID Performer Location Encounter Start Date Encounter Closed Date Diagnosis/Indication Diagnosis SNOMED-CT Code Diagnosis ICD10 Code [id number] [facility]Comm [facility]ce [id number] [facility] [place] [address] 03/23/2007 00:00:00 [id number] autoEComm erce [address] [facility] [place] [address] 04/06/2007 00:00:00 [id number] autoEComm erce [address] [facility] [place] [address] 04/15/2008 00:00:00 [id number] autoEComm erce [address] [facility],[address] [place] [address] 04/29/2008 00:00:00 [id number] autoEComm erce [address] [facility],[address] [place] [address] 12/19/2008 00:00:00 [id number] auto[facility]Comm erce [address] [facility],[address] [place] [address] 06/08/2009 00:00:00 [id number] [address]ce [address] [place] [address] 09/01/2009 00:00:00 [id number] [address]Comm [address] [place] [address] 02/23/2010 00:00:00 [id number] auto[facility]Comm erce [address] [place] [address] 03/09/2010 00:00:00 [id number] [address] [address] [place] [address] 10/25/2010 00:00:00 [id number] [address]Comm [address] [place] [address] 03/18/2011 00:00:00 [id number] autoEComm erce [address] [facility] [address] [place] [address] 11/01/2011 00:00:00 [id number] autoEComm erce [address] [place] [address] 12/02/2011 00:00:00 [id number] autoEComm erce [address] [facility] [address] [place] [address] 12/04/2011 00:00:00 [id number] autoEComm erce [address] [facility] [address] [place] [address] 12/06/2011 00:00:00 [id number] auto[facility]Comm erce [address] [place] [address] 12/04/2012 00:00:00 [id number] auto[facility]Comm erce [address] [place] [address] 04/15/2013 00:00:00 [id number] auto[facility]Comm erce [address] [place] [address] 08/02/2013 00:00:00 [id number] auto[facility]Comm erce [address] [place] [address] 11/30/2013 00:00:00 [id number] [facility] [address] [facility] [place] [address] 12/17/2013 00:00:00 [id number] Gris lipscomb Main Office [address] [address] [place] [address] 04/18/2014 16:11:19 04/18/2014 16:59:14 History of alcohol abuse 420530874 Fatigue 38270124 [id number] Main Office [address] [address] [place] [address] 05/26/2014 14:44:06 05/26/2014 15:40:25 History of alcohol abuse 326381065 Depressive disorder 3548 9007 [id number] Mariam Freitas MA Main Office [address] [address] [place] [address] 06/24/2014 09:26:53 06/24/2014 10:36:04 Tinea pedis 6101003 Increased frequency of urination 126619022 [id number] Elisha Hassan RN Main Office [address] [address] [place] [address] 08/26/2014 10:04:20 08/26/2014 11:05:36 Palpitations 18013961 [id number] Mitzy Black Main Office [address] [address] [place] [address] 08/27/2014 11:30:16 08/27/2014 11:55:51 Palpitations 99786139 [id number] Trupti Crowell Main Office [address] [address] [place] [address] 11/22/2014 15:24:24 11/22/2014 16:17:25 Lumbosacral radiculitis 31288431 Carpal esa elizabeth syndrome 64053418 Palpitations 42385596 [id number] Main Office [address] [address] [place] [address] 12/19/2014 10:03:17 12/19/2014 10:52:59 Adult health examination 865070544 Screening for malignant neoplasm of colon 404673758 Smoker 46685266 Carpal esa elizabeth syndrome 64611713 Thigh pain 31049382 [id number] Shantel Bowles MA Main Office [address] [place] [address] 03/20/2015 12:58:10 03/20/2015 13:51:33 Plantar fasciitis 111589726 Insomnia 832737331 Lupus erythematosus 2008 87702 Alcohol abuse 09109833 [id number] Gris CoeLin hadley Main Office [address] [facility] [address] [place] [address] 06/21/2015 09:45:41 06/21/2015 10:58:41 Alcohol abuse 02943767 F10.10 Insomnia 628498199 G47.0 0 Foot pain 96670299 M79.6 71 Acne 25885398 L70.9 [id number] Gris LaurenBayron deisi Main Office [address] [facility] [address] [place] [address] 08/02/2015 12:43:44 08/02/2015 14:16:23 Alcohol abuse 39434811 F10.10 [id number] Gris LaurenBayron hadley Main Office [address] [facility] [address] [place] [address] 10/06/2015 10:28:13 10/06/2015 12:14:30 Pain of breast 06602769 N64.4 [id number] Karel Esposito MD Main Office [address] [facility] [address] [place] [address] 01/12/2016 09:58:09 01/12/2016 10:45:09 Abdominal pain 17191100 R10.9 Lumbosacra l radiculitis 88292728 M54.17 [id number] Gris LaurenBayron hadley Main Office [address] [facility] [address] [place] [address] 03/06/2016 15:44:57 03/06/2016 16:54:36 Foot pain 19306981 M79.673 Lumbosacra l radiculitis 82727056 M54.17 [id number] Gris LaurenBayron deisi Main Office [address] [facility] [address] [place] [address] 07/15/2016 11:29:30 07/18/2016 20:45:18 [id number] Gris LaurenBayron hadley Main Office [address] [facility] [address] [place] [address] 10/02/2016 11:20:31 10/02/2016 12:00:36 Upper abdominal pain 02634345 R10.10 Alcohol abuse 80665585 F 10.10 [id number] Gris lipscomb Main Office [address] [facility] [address] [place] [address] 02/12/2017 15:31:21 02/12/2017 16:32:19 Adult health examination 735739616 Z00.00 Screening for malignant neoplasm of breast 089074892 Z12.39 Screening for malignant neoplasm of cervix 517907868 Z12.4 Upper abdominal pain 831 23372 R10.10 Alcohol abuse 90830985 F 10.10 [id number] Max ding Main Office [address] [facility] [address] [place] [address] 04/05/2017 10:08:27 04/05/2017 11:00:44 Immunization refused 014902839 Z28.21 Increased frequency of urination 055671579 R35.0 Atrophic vaginitis 83164 000 N95.2 [id number] Gris LaurenKaryLin santamariadeisi Main Office [address] [facility] [address] [place] [address] 07/29/2017 12:36:47 07/29/2017 13:30:55 Alcohol abuse 98720663 F10.10 Gastroesop hageal reflux disease 969803218 K21.9 [id number] Karel Esposito MD Main Office [address] [address] [place] [address] 08/06/2017 13:55:43 08/06/2017 14:50:54 Hip pain 26930951 M25.552 Low back pain 553545630 M54.5 [id number] Gris LaurenKaryLin lipscomb Main Office [address] [facility] [address] [place] [address] 08/19/2017 15:05:56 08/19/2017 16:06:32 Upper respiratory infection 74434765 J06.9 Cough variant asthma 409 800482 J45.991 Tobacco de pendence syndrome 18225531 F17.200 [id number] Gris LaurenKaryLin lipscomb Main Office [address] [address] [place] [address] 10/27/2017 15:13:07 10/27/2017 16:16:19 Gastroesophageal reflux disease 991443202 K21.9 History of alcohol abuse 451769587 F10.21 [id number] Gris santamariaenzo Main Office [address] [facility] [address] [place] [address] 12/18/2017 10:38:29 12/19/2017 13:13:35 [id number] Gris santamariaenzo Main Office [address] [address] [place] [address] 12/22/2017 15:27:00 12/22/2017 17:03:50 Atypical chest pain 224788298 R07.89 Gastroesop hageal reflux disease 200875042 K21.9 Costal chondritis 479270 04 M94.0 [id number] Gris santamariaenzo Main Office [address] [address] [place] [address] 05/25/2018 08:48:51 05/25/2018 09:29:36 Multiple joint pain 39234215 M25.50 Cervical radiculopathy 36362840 M54.12 Gastroesop hageal reflux disease 658998677 K21.9 [id number] Gris santamariaenzo Main Office [address] [address] [place] [address] 06/30/2018 15:47:55 06/30/2018 16:58:24 Needs influenza immunization 659290451 Z23 Multiple joint pain 3567 8005 M25.50 Fibromyalgia 864880859 M 79.7 Cervical radiculopathy 82702719 M54.12 [id number] Dejuan Bellamy PA-C Main Office [address] [address] [place] [address] 07/21/2018 13:50:22 07/21/2018 15:00:20 Chest pain 10825463 R07.9 Costal chondritis 744747 04 M94.0 Abdominal pain 66499479 R10.9 Constipation 75239719 K5 9.00 [id number] Gris santamariaenzo Main Office [address] [address] [place] [address] 07/29/2018 15:17:10 07/29/2018 16:32:28 Adult health examination 164734763 Z00.00 Administra tion of viral vaccine 15788477 Z23 Screening for malignant neoplasm of cervix 795175545 Z12.4 Screening for malignant neoplasm of breast 484521008 Z12.39 [id number] Alysha Bellamy PA-C Main Office [address] [address] [place] [address] 09/04/2018 15:15:12 09/04/2018 16:22:53 Increased frequency of urination 750088924 R35.0 Inflammati on of sacroiliac joint 06539086 M46.1 Right flank pain 6256908 09 R10.9 [id number] Marek Garcia MD Main Office [address] [address] [place] [address] 10/06/2018 13:41:34 10/06/2018 15:50:26 Jaw pain 713701177 R68.84 Temporoman dibular hddpk-ojpc-esvhzxlryp n syndrome 865550034 M26.629 [id number] Carolyn Boyle Main Office [address] [address] [place] [address] 02/12/2019 13:58:55 02/12/2019 15:04:49 Chronic pain syndrome 955087467 G89.4 Right uppe r quadrant pain 227273152 R10.11 Muscle pain 29633031 M79 .10 Adjustment disorder with depressed mood 17019925 F43.21 [id number] Gris lipscomb Main Office [address] [address] [place] [address] 04/02/2019 15:01:08 04/02/2019 15:53:27 Fibromyalgia 969947278 M79.7 Chronic pain syndrome 37 8864492 G89.4 Major depr ession single episode, in partial remission 57745640 F32.4 Neck pain 84114500 M54.2 [id number] Dejuan Bellamy PA-C Main Office [address] [address] [place] [address] 06/24/2019 09:36:57 06/24/2019 10:46:26 Abdominal pain 04733828 R10.9 Diverticul osis of colon without diverticulitis 553725391 K57.30 Constipation 54389721 K5 9.00 [id number] Gris Allen deisi Main Office [address] [facility] [address] [place] [address] 07/02/2019 14:08:04 07/02/2019 14:51:56 Fibromyalgia 999807282 M79.7 Needs infl uenza immunization 979368466 Z23 Major depr ession single episode, in partial remission 12309041 F32.4 Smoker 71215936 F17.200 History of alcohol abuse 515523481 F10.21 [id number] Gris santamariaenzo Main Office [address] [facility] [address] [place] [address] 10/20/2019 12:55:52 10/20/2019 13:59:37 Adult health examination 032512467 Z00.00 Screening for malignant neoplasm of cervix 048249826 Z12.4 Fibromyalgia 571101181 M 79.7 History of alcohol abuse 286934106 F10.21 Major depr ession single episode, in partial remission 51983325 F32.4 Wears glasses 832830018 Z97.3 Hypercholesterolemia 136 52859 E78.00 Hyperkalemia 36536976 E8 7.5 Smoker 35982288 F17.200 [id number] Carolyn [place] Main Office [address] [facility] [facility] [place] [address] [place] [address] 01/26/2020 09:33:44 01/26/2020 10:48:34 Abdominal bloating 469425074 R14.0 Generalize d anxiety disorder 37135713 F41.1 Moderate r ecurrent major depression 78498482 F33.1 [id number] Gris santamariaenzo Main Office [address] [facility] [address] [place] [address] 04/21/2020 11:31:32 04/21/2020 12:15:04 Fibromyalgia 841716712 M79.7 History of alcohol abuse 879183393 F10.21 Bilateral plantar fasciitis 6090945475 0335719 M72.2 [id number] Haley Poe Main Office 3640 [facility] [address] [place] [address] 09/08/2020 11:20:54 09/08/2020 11:50:57 Hip pain 29107171 M25.552 Fibromyalgia 922209991 M 79.7 Major depr ession in remission 41608503 F32.5 [id number] [facility] Main Office [address] [facility] [address] [place] [address] 10/25/2020 09:57:23 10/25/2020 11:01:35 Adult health examination 470229130 Z00.00 Fibromyalgia 907031358 M 79.7 Multiple joint pain 3567 8005 M25.50 History of alcohol abuse 207303711 F10.21 Insomnia 297676276 G47.0 0 Body mass index 30+ - obesity 680162126 E66.9 Z68.35 Pain in le ft lower limb 366488294 M79.605 [id number] MYA Baker Main Office 36[address] [facility] [address] [place] [address] 03/01/2021 14:02:39 03/01/2021 15:47:14 Numbness of foot 669095814 R20.0 Cramp in lower limb 4499 97194 R25.2 Fatigue 92017637 R53.83 Hyperlipidemia 65364667 E78.5 Eruption 086691113 R21 [id number] Grislilly [facility] Main Office [address] [facility] [address] [place] [address] 03/29/2021 13:57:07 03/29/2021 14:46:13 Low back pain 987921285 M54.5 Lumbar radiculopathy 128 266356 M54.16 Plantar fa sciitis of right foot 4165621315 8088788 M72.2 History of alcohol abuse 268502093 F10.21 Fibromyalgia 321259299 M 79.7 [id number] [facility] Main Office [address] [facility] [address] [place] [address] 08/09/2021 10:48:29 08/09/2021 11:45:18 Pain of left hip joint 9835342838 48832 M25.552 Major depr ession single episode, in partial remission 04567697 F32.4 [id number] Carolyn Boyle Main Office 3640 [facility] [address] [place] [address] 10/15/2021 10:35:11 10/15/2021 11:43:00 Fibromyositis 16785743 M79.7 Fibromyalgia 833264181 M 79.7 Major depr ession single episode, in partial remission 02386953 F32.4 [id number] Gris [facility] Main Office [facility] [address] [place] [address] 10/31/2021 09:12:19 10/31/2021 09:51:33 Adult health examination 013349653 Z00.00 Fibromyalgia 609485799 M 79.7 Insomnia 711215805 G47.0 0 History of alcohol abuse 850234306 F10.21 Screening for malignant neoplasm of lung 752523065 Z87.891 [id number] Dejuan Bellamy PA-C [address] [address] [place] [address] 01/22/2022 08:16:12 01/22/2022 10:59:54 COVID-19 177850699 U07.1 Counseling 817842795 Z71 .9 Dyspnea 134388979 R06.00 [id number] Gris [address] [address] [place] [address] 03/21/2022 09:56:03 03/21/2022 10:37:01 Fibromyalgia 524777597 M79.7 Spasm of back muscles 20 8903673 M62.830 Insomnia 689219177 G47.0 0 History of alcohol abuse 219348245 F10.21 [id number] [address] [address] [place] [address] 06/26/2022 08:31:57 06/26/2022 10:47:55 Fibromyalgia 756718628 M79.7 Major depr ession single episode, in partial remission 55044788 F32.4 Steatosis of liver 1007 K76.0 Insomnia 622582423 G47.0 0 [id number] [facility] Office [address] [place] [address] [place] [address] 08/02/2022 10:29:19 08/02/2022 11:11:46 History of alcohol abuse 488116761 F10.21 Steatosis of liver 1007 K76.0 Hypothyroidism 63965659 E03.9 Right uppe r quadrant pain 162604121 R10.11 [id number] Gris LaurenKaryLin lipscomb [facility] h [address] [address] [place] [address] 08/14/2022 10:50:55 08/14/2022 15:07:53 Right upper quadrant pain 228385812 R10.11 Pain in ri ght lower limb 223749164 M79.604 Steatosis of liver 1007 K76.0 [id number] YENIFER LYONS MD Main Office [address] [address] [place] [address] 09/10/2022 12:52:56 09/10/2022 13:20:16 Administrative reason for encounter 736939475 Z02.[address] [facility] ed risk for falls 503726807 Z91.81 [id number] MYA Baker Main Office [address] [address] [place] [address] 01/24/2023 13:26:25 01/24/2023 14:17:35 Adult health examination 437396270 Z00.00 Multiple joint pain 3567 8005 M25.50 Hyperlipidemia 75562434 E78.5 Hypothyroidism 68030412 E03.9 Screening for malignant neoplasm of colon 936090606 Z12.11 Spasm of m uscle of lower back 9763330675 5015644 M62.830 Fibromyalgia 514896416 M 79.7 [id number] Haley Poe Main Office [address] [address] [place] [address] 05/02/2023 15:06:13 05/02/2023 15:41:04 Psoriasis 7156511 L40.9 Keratosis pilaris 525645 5 Q82.8 Body mass index 40+ - severely obese 257110818 Z68.41 Morbid obesity 150903856 E66.01 [id number] YENIFER LYONS MD Main Office [address] [address] [place] [address] 06/18/2023 15:27:06 06/18/2023 16:49:38 Morbid obesity 461545671 E66.01 Body mass index 40+ - severely obese 979245611 Z68.41 Hypothyroidism 82172479 E03.9 Menopausal syndrome 1237 75957 N95.9 Low back pain 532658261 M54.50 [id number] MYA Baker Main Office [address] [address] [place] [address] 08/01/2023 14:53:46 08/01/2023 15:40:51 Eruption 223777992 R21 Fibromyalgia 182609319 M 79.7 Multiple joint pain 3567 8005 M25.50 Spasm of m uscle of lower back 2429598277 9029890 M62.830 [id number] DANNI ELLIS Main Office [address] [address] [place] [address] 11/06/2023 11:18:16 11/06/2023 12:29:18 Acute pharyngitis 114092986 J02.9 Viral uppe r respiratory tract infection 702408152 J06.9 [id number] YENIFER LYONS MD Main Office [address] [address] [place] [address] 02/13/2024 14:36:20 02/13/2024 15:11:44 Morbid obesity 419521373 E66.01 Hypothyroidism 41377126 E03.9 Impaired f asting glycemia 539821412 R73.01 [id number] DANNI ELLIS Main Office [address] [address] [place] [address] 02/26/2024 11:06:11 02/26/2024 11:26:57 Acute conjunctivitis 63388732 H10.30 Viral uppe r respiratory tract infection 217857798 J06.9 [id number] YENIFER LYONS MD Main Office [address] [address] [place] [address] 03/01/2024 13:40:31 03/01/2024 15:00:10 Morbid obesity 389559979 E66.01 Prediabetes 692083130 R7 3.03 [id number] YENIFER LYONS MD Main Office [address] [address] [place] [address] 03/30/2024 10:18:27 03/30/2024 10:56:29 Adult health examination 718795931 Z00.00 History of alcohol abuse 790726959 F10.21 Fibromyalgia 391039198 M 79.7 Hypothyroidism 96212500 E03.9 Insomnia 484647527 G47.0 0 Major depr ession single episode, in partial remission 84733694 F32.4 Prediabetes 221653960 R7 3.03 Steatosis of liver 93130 1007 K76.0 Hyperlipidemia 21327649 E78.5 Screening for malignant neoplasm of cervix 856542918 Z12.4 Screening for malignant neoplasm of colon 160809517 Z12.11 Keratosis pilaris 765472 5 Q82.8 Eczema 20178679 L30.9 Body mass index 40+ - severely obese 560839541 E66.01 Z68.41 [id number] YENIFER LYONS MD Main Office [address] [address] 05/11/2024 13:27:21 05/11/2024 14:11:17 Body mass index 40+ - severely obese 920233079 E66.01 Z68.41 Prediabetes 866276253 R7 3.03 Health Concerns Section Related Observation LastModified by Organization Detai ls LastModified Time None Recorded Concern Status LastModified by Organization Details LastModified Time None Recorded Advance Directives Directive N: none in chart Payers Encounter Date Sequence Insurance Name Policy Number Policy Proctor Covered Member ID Proctor Member ID Guarantor Name 02/13/2024 1 [facility] [employer] - DOS ON OR AFTER 2022 - LONG-TERM OPTIONS AND ONE CARE (MEDICARE REPLACEMENT/ADV ANTAGE - PPO) Aida Colon [id number] Aida Colon 02/26/2024 1 [facility] - DOS ON OR AFTER 2022 - LONG-TERM OPTIONS AND ONE CARE (MEDICARE REPLACEMENT/ADV ANTAGE - PPO) Aida Colon [id number] Aida Colon 03/01/2024 1 [facility] - DOS ON OR AFTER 2022 - LONG-TERM OPTIONS AND ONE CARE (MEDICARE REPLACEMENT/ADV ANTAGE - PPO) Aida Colon [id number] Aida Colon 03/30/2024 1 [facility] [employer] - DOS ON OR AFTER 2022 - LONG-TERM OPTIONS AND ONE CARE (MEDICARE REPLACEMENT/ADV ANTAGE - PPO) Aida Colon [id number] Aida Francois 05/11/2024 1 [facility] - DOS ON OR AFTER 2022 - LONG-TERM OPTIONS AND ONE CARE (MEDICARE REPLACEMENT/ADV ANTAGE - PPO) Aida Francois [id number] Aida Francois Notes Date Note Type Note Provider Name and Address Organization Details Recorded Time 02/13/2024 text/html ObesityReported bypatient.Diagnosis Summary:diagnosis: obesity Context:no inhaled steroids; no oral steroids Associated Symptoms:hypothyroidis m Co-morbidities:no new co-morbidities since last visit Lifestyle changes:not losing weight;not exercising more Nutrition:poor compliance with diet Physical Activity:no exercise Medication Education:understands potential side effects; understands administration; understands role of diet as primary therapy Aida Francois is a 58 year old F who presented to the clinic for discussion on weight gain. Patient mentions that she continues to gain weight. She tried to watch what she eats however has problems as she always feel hungry. Aida mentions she craves sugar and has trouble not giving into these temptations. Exercise is hard for her as well due to increase stiffness and joint pain. YENIFER LYONS MD [address] [address], [place], [address], [facility] 02/14/2024 07:56:22 02/26/2024 text/html Red EyeReported bypatient.Location[facility] Quality:itching Severity:mild Duration:constant Onset/Timindays Associated Symptoms:normal vision; no sensitivity to light;watery discharge from the eyesUpper Respiratory SymptomsReported bypatient.Location:community health Quality:productive cough;congested Duration:5 days Context:no sick contacts; no foreign travel Modifying Factors:OTC medication Associated Symptoms:no shortness of breath; no wheezing; no sweats; no fever; no sore throat; no vomiting; no diarrhea; no rash; no nausea Aida is a 58yr old F who presents for eye redness and URI symptoms. 1) Patient c/o eye redness x 5 days. Started in the right eye, but is now in both. Very itchy. Reports of crusting of the eye lids in the mornings. Has not tried warm compress or eye drops. Denies of any changes in vision or pain with EOM. 2) Reports symptoms of sneezing, coughing, changes in voice, sinus headache, and bilateral ear fullness. Negative COVID test today. Has been taking nyquil. Denies of any fever, chills, fatigue, chest pain, or SOB. DANNI ELLIS [address], [address], [facility] 02/26/2024 12:04:29 03/01/2024 text/html ObesityReported bypatient.Diagnosis Summary:diagnosis: obesity Context:no inhaled steroids; no oral steroids Associated Symptoms:hypothyroidis m Co-morbidities:no new co-morbidities since last visit Lifestyle changes:not losing weight;not exercising more Nutrition:poor compliance with diet Physical Activity:no exercise Medication Education:understands potential side effects; understands administration; understands role of diet as primary therapy Aida Francois is a 58 year old F who presented to the clinic for discussion on weight gain. Patient mentions that she continues to gain weight. She tried to watch what she eats however has problems as she always feel hungry. Aida mentions she craves sugar and has trouble not giving into these temptations. Exercise is hard for her as well due to increase stiffness and joint pain. YENIFER LYONS MD [address], [address], [facility] 03/01/2024 14:56:19 03/30/2024 text/html Medicare Annual Wellness VisitReported bypatient.Diet and Nutrition:discussed vitamin and supplement use Physical Activity:does not exercise on a regular basis;decreased physical activity;poor physical condition Depression Risk:history of mood disorders;history of depression Orientation:no disorientation to time; no disorientation to date; no disorientation to place Concentration and Memory:no decreased concentrating ability; no memory lapses or loss; does not forget words Speech/Motor difficulties:no speech difficulties; no difficulty expressing formulated concepts; no difficulty with fine manipulative tasks; no difficulty writing/copying; no slowed reaction time; does not knock things over when trying to pick them up Hearing:no loss of hearing Vision:pt wears glasses Activities of Daily Living:able to bathe with limited or no assistance; able to contol urination and bowels; able to dress with limited or no assistance; able to feed self with limited or no assistance; able to get out of chair or bed with limited or no assistance; able to groom with limited or no assistance; able to toilet with limited or no assistance Instrumental Activities of Daily Living:able to do house work with limited or no assistance; able to grocery shop with limited or no assistance; able to manage medications with limited or no assistance; able to manage money with limited or no assistance; able to prepare meals with limited or no assistance; able to use the phone with limited or no assistance Falls Risk Assessment:fall(s) in the past year 0; history of falls Aida Francois is a 58 year old F who presented to the clinic for her annual exam. Patient denies any emergency room visits or hospitalizations during this time. Complaints: knee pain (right side) Is not using ASA.OTC/Herbal supplements use: none Gynecologic HistoryPatient's last menstrual period was around 47 year oldNo spottingSexually active: yesContraception: menopause+ abnormal papsDenies cysts, stds, fibroids Obstetric HistoryGravida: 0Para: 0AB: 0Complications: Drug use: neverEtoh use: no longer drinking, was an alcoholictobacco use: former smoker, quit in 2020, 1-1/2 pack a dayspf/derm: Dental: every 6 months, will see todayEye: every year, wears glassesDiet: regularActivity: none YENIFER LYONS MD [address], [address], [facility] 03/30/2024 11:23:18 05/11/2024 text/html ObesityReported bypatient.Diagnosis Summary:diagnosis: obesity Context:no inhaled steroids; no oral steroids Associated Symptoms:hypothyroidis m Co-morbidities:no new co-morbidities since last visit Lifestyle changes:not losing weight;not exercising more Nutrition:poor compliance with diet Physical Activity:no exercise Medication Education:understands potential side effects; understands administration; understands role of diet as primary therapy Aida Francois is a 58 year old F who presented to the clinic for discussion on weight gain. Patient mentions that she continues to gain weight. She tried to watch what she eats however has problems as she always feel hungry. Aida mentions she craves sugar and has trouble not giving into these temptations. Exercise is hard for her as well due to increase stiffness and joint pain. Ordered GLP-1 medication however insurance denied both wegovy and zepbound. YENIFER LYONS MD [address] [address], [place], [address], [facility] 05/11/2024 14:16:22 OBGyn Episode No OBEpisode recorded.
--- OUTSIDE RECORDS SUMMARY | 2024-07-23 14:18 | XMS_ITS | Continuity of Care Document ---
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 [address] [facility] [address], [place], [address] , [facility] [place] 6 10:19:41 Blephari tis [id number] Completed 201202/22/2014 RECORDED 12/05/19 13 4:28PM BY LOYDA CROWELL MA, HORACIO ON/ANIBAL Ashby, [facility] [address] [facility] [address], [place], [address] , [facility] 6 10:19:41 Multiple joint pain 83857598 Completed 201202/22/2014 IMPRESSI ON: PT WITH SEVERAL [...] AND DATE.; RECORDED 12/05/19 13 4:28PM BY LOYDA CROWELL MA, RITAATI ON/ADDMILENA Bellamy PA-C [address] [facility] [address], [place], [address] , [facility] 8 20:31:23 Eruption [id number] Completed 201202/22/2014 RECORDED 12/05/19 13 4:28PM BY LOYDA CROWELL MA, HORACIO ON/ANIBAL LYONS MD [address] [facility] [address], [place], [address] , [facility] 4 08:02:30 Adult health examinat ion Completed 201202/22/2014 IMPRESSI ON: PAP AND MAMMO UTD, IS ACTIVE WITH CLEANING , NEEDS TO DO SOME WALKING OFR EXERCISE ; RECORDED 12/05/19 13 4:28PM BY LOYDA CROWELL MA, ANNOTATI ON/ADDMILENA fisher, [facility] 7 15:57:20 External hordeolu m [id number] Completed 201302/22/2014 IMPRESSI ON: STOP CIPRO OPTHALMI C DROPS ADN USE OINTMENT FOR STYE, HOT COMPRESS ES OK TO RETURN TO WORK 04/19; RECORDED 12/01/19 14 4:32PM BY MICHELLE EMMANUEL MA, RITAATI ON/ADDMYA Atkins [address] [facility] [address], [place], [address] , [facility] [place] 6 10:19:41 Increase d frequenc y of urinatio n [id number] Completed 10/02/2016 ISS[facility] [place], [facility] 7 11:22:48 Function al visual loss 608099767 Completed 02/12/2017 Love fisher, [facility] 7 21:56:56 Vitamin D deficien cy 05181582 Completed 201202/22/2014 RECORDED 12/05/19 13 4:27PM BY LOYDA CROWELL MA, ANNOTATI ON/ADDEN DUM Sowmya Ashby, [facility] [address], [place], [address] , [facility] [place] 6 10:19:40 Problem Notes None recorded. Procedures Surgical History Date Name Laterality Status Provider Name and Address Organization Details Recorded Time 09/18/19 24 Most Recent Mammogram completed Aisha Alatorre [facility] 09/18/2023 13:36:11 05/11/20 22 Date of Last Pap Smear completed Sowmya Ashby, [facility] [address], [place], [address], [facility] [place] 01/24/2023 14:10:01 05/16/20 21 Mammogram screening completed Nallely Johnson [facility] 06/25/2021 14:47:08 06/18/20 19 insertion of catheter into spinal canal for infusion of therapeutic substance completed Rubi Edwards [place] [facility] 01/24/2023 13:37:51 06/18/20 18 primary fusion of cervical spine completed Elidia [facility] 07/08/2018 13:21:00 10/23/19 18 Carpal tunnel surgery completed Elidia [facility] 11/04/2017 15:07:26 09/24/19 18 Carpal tunnel surgery completed Elidia [facility] 11/04/2017 15:07:33 11/08/19 17 Egd diagnostic brush wash completed Elidia [facility] 12/03/2016 15:48:33 06/27/20 15 Date of Last Colonoscopy completed Mariam Fortino [facility] 02/12/2017 16:09:58 06/27/20 15 Colonoscopy completed Mariam Freitas [facility] 02/12/2017 16:09:48 Carpal tunnel surgery completed Rubi Edwards [facility] 01/24/2023 13:38:48 Other completed Mariam Freitas [facility] 06/24/2014 09:46:30 Imaging Results None recorded. Procedure Notes None recorded. Medical Equipment None Reported. Allergies Allergen ID Allergen Name Allergen Category Reaction Reaction Severity Criticality Documentation Date Start Date Code Code System Note Provider Name and Address Organization Details Recorded Time 2181 Shellfish (substanc e) food,medi cation other Not available Not available 02/22/2014 89779 9006 SNOMED ISS[facility] [place] [facility] 2 09:18:13 2182 sulfameth oxazole medicatio n hives Not available Not available 02/22/2014 91159 RxNorm [facility] [place] [facility] 2 09:51:45 28000 gabapenti n medicatio n Not available Not available Not available 05/02/2023 47750 RxNorm cause d sedat ion Michelle [facility] [place] 3 15:17:48 Medications Name Sig Start Date [...] RECORDED 05/16/20 08 5:59PM BY BEATRICE IVAN, KARLAATI ON AUTO-MARGARITO CTIVATIO N; Not Available Not [...] 03/12 completed RECORDED 03/15/20 10 1:04PM BY KARLA ZALDIVARATI ON AUTO-MARGARITO CTIVATIO N; Not Available Not Available Not Available erythromy luz maria 5 mg/gram (0.5 %) eye ointment QID 04/22 completed RECORDED 08/02/20 13 10:57AM BY LOVE Iglesias MD, MEDICATI ON AUTO-MARGARITO CTIVATIO N; [...] 12/04 completed RECORDED 12/05/19 13 4:33PM BY LOYDA CROWELL MA, OFFICE VISIT; Not Available Not [...] Details Last Updated DateTime 4 157.48 cm 45.6 kg/m2 653855. 2 g 97 % 97 % 82 /min 97.6 [degF] 117 mm[Hg] 69 mm[Hg] Janet Bowles MA [facility] 13:49:00 Social History Question Answer Notes LastModified by Organizat ion Details LastModified Time Tobacco Smoking Status Former Smoker quit January 09 2019 [facility] 03/01/2021 14:09:31 Do You Have An Advance Directive? No None In Chart Information not available 06/26/2022 What Is Your Level Of Alcohol Consumption? None Quit Drinking [email or web address] Information not available 04/21/2020 Is Blood Transfusion Acceptable In An Emergency? No Information not available 02/12/2017 What Is Your Level Of Caffeine Consumption? Occasional Coffee [email or web address] Information not available 01/24/2023 How Much Tobacco Do You Chew? None Information not available 03/01/2021 Are You Currently Employed? No Information not available 03/01/2021 What Type Of Diet Are You Following? REGULAR [email or web address] Information not available 12/19/2014 Which Illicit Or Recreational Drugs Have You Used? None Information not available 04/05/2017 Do You Or Have You Ever Used E-cigarettes Or Vape? 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 No [email or web address] Information not available 04/21/2020 Are You Or Anyone In Your Household A Health Care Provider Or Emergency Responder? No [email or web address] Information not available 04/21/2020 To The Best Of Your Knowledge Have You Been In Close Proximity To Any Individual Who Tested Positive For COVID-19? No [email or web address] Information not available 04/21/2020 Have You Recently Traveled To A COVID-19 High Risk Area Or Gathering In The Last 10 Days? No [email or web address] Information not available 09/08/2020 What Was The Date Of Your Most Recent Tobacco Screening? 03/30/2024 [email or web address] Information not available 03/30/2024 How Many Children Do You Have? 0 [email or web address] Information not available 12/19/2014 What Is Your Current Pack Years? [email or web address] Information not available 06/26/2022 Do You Use Protection During Sex? No Information not available 03/01/2021 Seat Belts Used Routinely Yes Information not available 06/26/2022 Are You Sexually Active? No Information not available 03/01/2021 Smoke Alarm In Home Yes Information not available 06/26/2022 At What Age Did You Start Smoking Tobacco? 27 [email or web address] Information not available 12/19/2014 Are You Passively Exposed To Smoke? No Information not available 02/12/2017 Do You Or Have You Ever Used Smokeless Tobacco? Never Used Smokeless Tobacco [email or web address] Information not available 10/20/2019 General Stress Level Medium [email or web address] Information not available 03/30/2024 Do You Use [...] you able to care for yourself? Yes [email or web address] Information not available 12/19/2014 What is your [...] cer in family Medical History Condition Response Gout N Other N Kidney Stones N Blood Diseases N Hyperthyroidism N Breast Cancer N COPD N Depression Y Lung Disease N Hypothyroidism N Defects or Inherited Disease N Anesthesia Complications N Headaches/Migraines N Anxiety Disorder Y Varicose Veins N Obesity N Vision or Eye Problems Y Arthritis N Head Injury/Concussion N Polyps N Infertility N Congenital Anomalies N Acid Reflux (GERD) Y Cancer N Stroke N ADHD N Endometriosis N High Cholesterol N Liver Disease N Fibromyalgia N Kidney Disease N Heart Problems N Ear or Hearing Problems N Hospitalizations N Thyroid Problems N GI Problems N Acne N Eating Disorder Y Skin Problems N Anemia N Constipation N Bladder Problems Y Mental Illness N Diabetes N Ovarian Cancer N Blood Transfusions N Seizures/Epilepsy N Tuberculosis N AIDS/HIV N Congestive Heart Failure (CHF) N Eczema N Abuse/Domestic Violence N Diverticulitis N Asthma N Allergies N Reflux/GERD N [...] dose or 50 mcg/0.25mL dose 021 completed Michelle Kala-Kiran os, MA null, [facility] 08/09/2021 11:20:39 COVID-19, mRNA, LNP-S, PF, 100 mcg/0.5mL dose or 50 mcg/0.25mL dose 021 completed Michelle Kala-Kiran os, MA null, [facility] 08/09/2021 11:20:39 Influenza, MDCK, quadrivalent, preservative 020 completed Michelle Kala-Kiran os, MA null, [facility] 08/09/2021 11:20:39 COVID-19, mRNA, LNP-S, PF, 100 mcg/0.5mL dose or 50 mcg/0.25mL dose 021 completed Michelle Kala-Kiran os, MA null, [facility] 08/09/2021 11:20:39 Influenza, split virus, quadrivalent, PF 021 completed Michelle Kala-Kiran os, MA null, [facility] 08/09/2021 11:20:39 COVID-19, mRNA, LNP-S, PF, 100 mcg/0.5mL dose or 50 mcg/0.25mL dose 022 completed [facility] [place] [facility] 03/21/2022 10:07:39 Tdap 018 completed ISSA [place], [facility] 03/21/2022 10:13:19 Influenza, MDCK, quadrivalent, PF 022 completed ISSA [place], [facility] 06/26/2022 09:29:36 COVID-19, mRNA, LNP-S, bivalent, PF, 50 mcg/0.5 mL or 25mcg/0.25 mL dose 022 completed [facility] [place] [facility] 06/26/2022 09:29:36 zoster recombinant 023 completed ISSA [place], [facility] 01/24/2023 13:29:38 Pneumococcal conjugate PCV20, polysaccharide [id number] conjugate, adjuvant, PF 023 completed ISSA [place], [facility] 01/24/2023 13:29:38 Influenza, MDCK, quadrivalent, PF 023 completed Michelle Armendariz-Kiran os, ISSA fisher, [facility] 05/02/2023 15:09:33 zoster recombinant 023 completed Michelle Armendariz-Kiran os, ISSA [place], [facility] 05/02/2023 15:09:34 COVID-19, mRNA, LNP-S, PF, beba-sucrose, 30 mcg/0.3 mL 023 completed [facility] [place] [facility] 06/18/2023 15:35:45 COVID-19, mRNA, LNP-S, PF, 50 mcg/0.5 mL 024 completed ISSA [place], [facility] 05/11/2024 13:42:29 Influenza, MDCK, trivalent, PF 024 completed ISSA [place], [facility] 05/11/2024 13:42:29 Td (adult), 2 Lf tetanus toxoid, preservative free, adsorbed 007 completed Elidia fisher [facility] 01/26/2020 15:42:41 Influenza, split virus, quadrivalent, PF 017 cancelled patient objection Not Available [facility] 08/28/2019 02:22:07 Influenza, split virus, quadrivalent, PF 018 cancelled patient objection Not Available [facility] 08/28/2019 02:22:15 Influenza, split virus, quadrivalent, PF 019 cancelled patient objection Not Available [facility] 08/28/2019 02:22:10 Past Encounters Encounter ID Performer Location Encounter Start Date Encounter Closed Date Diagnosis/Indication Diagnosis SNOMED-CT Code Diagnosis ICD10 Code [id number] YENIFER LYONS MD Main Office [address] [place] [address] 05/11/2024 13:27:21 05/11/2024 14:11:17 Body mass index 40+ - severely obese 882946586 E66.01 Z68.41 Prediabetes 382382511 R7 3.03 Health Concerns Section Related Observation LastModified by Organization Detai ls LastModified Time None Recorded Concern Status LastModified by Organization Details LastModified Time None Recorded Payers Encounter Date Sequence Insurance Name Policy Number Policy Proctor Covered Member ID Proctor Member ID Guarantor Name 05/11/2024 1 [facility] - DOS ON OR AFTER 2022 - LONG-TERM OPTIONS AND ONE CARE (MEDICARE REPLACEMENT/ADV ANTAGE - PPO) Aida Francois [id number] Aida Francois Notes Date Note Type Note Provider Name and Address Organization Details Recorded Time 05/11/2024 text/html ObesityReported bypatient.Diagnosis Summary:diagnosis: obesity Context:no inhaled steroids; no oral steroids Associated Symptoms:hypothyroidi sm Co-morbidities:no new co-morbidities since last visit Lifestyle [...] both wegovy and zepbound. YENIFER LYONS MD [address] [facility] [address], [place], [address], [facility] [place] 05/11/2024 14:16:22 OBGyn Episode No OBEpisode recorded.
== END ==
LOC: HO.HBST 14:15
PROVIDERS: Visit Provider Counselor Mental Health
DX: F32.A Depression, unspecified (principal)
CPT/HCPCS: 90791

== ENCOUNTER → 2024-08-05 11:10 | Outpatient (REF) | payer OTHER, SELFPAY ==
--- OUTSIDE RECORDS SUMMARY | 2024-08-05 11:14 | XMS_ITS | Continuity of Care Document ---
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 completed Nallely Johnson [facility] 06/25/2021 14:47:08 06/18/20 19 insertion of catheter into spinal canal for infusion of therapeutic substance completed Rubi Edwards MA [facility] 01/24/2023 13:37:51 06/18/20 18 primary fusion of cervical spine completed Elidia [place] [facility] 07/08/2018 13:21:00 10/23/19 18 Carpal tunnel surgery completed Elidia [place]brook [facility] 11/04/2017 15:07:26 09/24/19 18 Carpal tunnel surgery completed Elidia [place] [facility] 11/04/2017 15:07:33 11/08/19 17 Egd diagnostic brush wash completed Elidia [place] [facility] 12/03/2016 15:48:33 06/27/20 15 Date of Last Colonoscopy completed Mariam Fortino PAR[facility] 02/12/2017 16:09:58 06/27/20 15 Colonoscopy completed Mariam Freitas MA [facility] 02/12/2017 16:09:48 Carpal tunnel surgery completed Rubi Edwards MA [facility] 01/24/2023 13:38:48 Other completed Mariam Freitas [facility] 06/24/2014 09:46:30 Imaging Results None recorded. Procedure Notes None recorded. Medical Equipment None Reported. Allergies Allergen ID Allergen Name Allergen Category Reaction Reaction Severity Criticality Documentation Date Start Date Code Code System Note Provider Name and Address Organization Details Recorded Time 2181 Shellfish (substanc e) food,medi cation other Not available Not available 02/22/2014 98387 9006 SNOMED ISSA [place] [facility] 2 09:18:13 2182 sulfameth oxazole medicatio n hives Not available Not available 02/22/2014 27925 RxNorm ISSA [place] [facility] 2 09:51:45 29476 gabapenti n medicatio n Not available Not available Not available 05/02/2023 96695 RxNorm cause d sedat ion Michelle ISSA [place] [facility] 3 15:17:48 Medications Name Sig Start Date [...] Updated DateTime 4 157.48 cm 45.6 kg/m2 583815. 2 g 97 % 97 % 82 /min 97.6 [degF] 117 mm[Hg] 69 mm[Hg] Janet Bowles MA [facility] 13:49:00 Social History Question Answer Notes LastModified by Organizat ion Details LastModified Time Tobacco Smoking Status Former Smoker quit January 09 2019 ISSA Pradhan [facility] 03/01/2021 14:09:31 Do You Have An Advance Directive? No None In Chart Information not available 06/26/2022 What Is Your Level Of Alcohol Consumption? None Quit Drinking [email or web address] Information not available 04/21/2020 Is Blood Transfusion Acceptable In An Emergency? No Information not available 02/12/2017 What Is Your Level Of Caffeine Consumption? Occasional Coffee [email or web address] Information not available 01/24/2023 How Much Tobacco Do You Chew? None Information not available 03/01/2021 Are You Currently Employed? No Information not available 03/01/2021 What Type Of Diet Are You Following? REGULAR [email or web address] Information not available 12/19/2014 Which Illicit Or [...] Or Greater Than 100 Degrees Fahrenheit? No [email or web address] Information not available 04/21/2020 Are You Or Anyone In Your Household A Health Care Provider Or Emergency Responder? No [email or web address] Information not available 04/21/2020 To The Best Of Your Knowledge Have You Been In Close Proximity To Any Individual Who Tested Positive For COVID-19? No [email or web address] Information not available 04/21/2020 Have You Recently Traveled To A COVID-19 High Risk Area Or Gathering In The Last 10 Days? No [email or web address] Information not available 09/08/2020 What Was The Date Of Your Most Recent Tobacco Screening? 03/30/2024 [email or web address] Information not available 03/30/2024 How Many Children Do You Have? 0 [email or web address] Information not available 12/19/2014 What Is Your Current Pack Years? [email or web address] Information not available 06/26/2022 Do You Use Protection During Sex? No Information not available 03/01/2021 Seat Belts Used Routinely Yes Information not available 06/26/2022 Are You Sexually Active? No Information not available 03/01/2021 Smoke Alarm In Home Yes Information not available 06/26/2022 At What Age Did You Start Smoking Tobacco? 27 [email or web address] Information not available 12/19/2014 Are You Passively Exposed To Smoke? No Information not available 02/12/2017 Do You Or Have You Ever Used Smokeless Tobacco? Never Used Smokeless Tobacco [email or web address] Information not available 10/20/2019 General Stress Level Medium [email or web address] Information not available 03/30/2024 Do You Use [...] you able to care for yourself? Yes [email or web address] Information not available 12/19/2014 What is your [...] 021 completed Michelle Kala-Kiran os, MA null, [facility] 08/09/2021 11:20:39 COVID-19, mRNA, LNP-S, PF, 100 mcg/0.5mL dose or 50 mcg/0.25mL dose 021 completed Michelle Kala-Kiran os, MA null, [facility] 08/09/2021 11:20:39 Influenza, MDCK, quadrivalent, preservative 020 completed Michelle Kala-Kiran os, MA null, [facility] 08/09/2021 11:20:39 COVID-19, mRNA, LNP-S, PF, 100 mcg/0.5mL dose or 50 mcg/0.25mL dose 021 completed Michelle Kala-Kiran os, MA null, [facility] 08/09/2021 11:20:39 Influenza, split virus, quadrivalent, PF 021 completed Michelle Kala-Kiran os, MA null, [facility] 08/09/2021 11:20:39 COVID-19, mRNA, LNP-S, PF, 100 mcg/0.5mL dose or 50 mcg/0.25mL dose 022 completed ISSA [place] [facility] 03/21/2022 10:07:39 Tdap 018 completed ISSA [place], [facility] 03/21/2022 10:13:19 Influenza, MDCK, quadrivalent, PF 022 completed ISSA [place], [facility] 06/26/2022 09:29:36 COVID-19, mRNA, LNP-S, bivalent, PF, 50 mcg/0.5 mL or 25mcg/0.25 mL dose 022 completed ISSA [place] [facility] 06/26/2022 09:29:36 zoster recombinant 023 completed ISSA [place], [facility] 01/24/2023 13:29:38 Pneumococcal conjugate PCV20, polysaccharide [id number] conjugate, adjuvant, PF 023 completed ISSA [place], [facility] 01/24/2023 13:29:38 Influenza, MDCK, quadrivalent, PF 023 completed Michelle Armendariz-Kiran os, ISSA fisher, [facility] 05/02/2023 15:09:33 zoster recombinant 023 completed Michelle Armendariz-Kiran os, ISSA fisher, [facility] 05/02/2023 15:09:34 COVID-19, mRNA, LNP-S, PF, beba-sucrose, 30 mcg/0.3 mL 023 completed ISSA [place] [facility] 06/18/2023 15:35:45 COVID-19, mRNA, LNP-S, PF, 50 mcg/0.5 mL 024 completed ISSA [place], [facility] 05/11/2024 13:42:29 Influenza, MDCK, trivalent, PF 024 completed ISSA [place], [facility] 05/11/2024 13:42:29 Td (adult), 2 Lf tetanus toxoid, preservative free, adsorbed 007 completed Elidia fisher [facility] 01/26/2020 15:42:41 Influenza, split virus, quadrivalent, PF 017 cancelled patient objection Not Available [facility] 08/28/2019 02:22:07 Influenza, split virus, quadrivalent, PF 018 cancelled patient objection Not Available [facility] 08/28/2019 02:22:15 Influenza, split virus, quadrivalent, PF 019 cancelled patient objection Not Available [facility] 08/28/2019 02:22:10 Past Encounters Encounter ID Performer Location Encounter Start Date Encounter Closed Date Diagnosis/Indication Diagnosis SNOMED-CT Code Diagnosis ICD10 Code [id number] YENIFER LYONS MD Main Office [address] [place] [address] 05/11/2024 13:27:21 05/11/2024 14:11:17 Body mass index 40+ - severely obese 956368786 E66.01 Z68.41 Prediabetes 906655656 R7 3.03 Health Concerns Section Related Observation LastModified by Organization Detai ls LastModified Time None Recorded Concern Status LastModified by Organization Details LastModified Time None Recorded Payers Encounter Date Sequence Insurance Name Policy Number Policy Proctor Covered Member ID Proctor Member ID Guarantor Name 05/11/2024 1 [facility] - DOS ON OR AFTER 2022 - CUSTODIAL OPTIONS AND ONE CARE (MEDICARE REPLACEMENT/ADV ANTAGE - PPO) Aida Francois [id number] Aida Francois Notes Date Note Type Note [...] and zepbound. YENIFER LYONS MD [address], [place], [address], [facility] 05/11/2024 14:16:22 OBGyn Episode No OBEpisode recorded.
--- NOTE | 2024-08-05 11:16 | ECG_ITS ---
Test Reason : E66.01 - Morbid (severe) obesity due to excess calories Blood Pressure : / mmHG Vent. Rate : 066 BPM Atrial Rate : 066 BPM P-R Int : 118 ms QRS Dur : 082 ms QT Int : 406 ms P-R-T Axes : 054 035 051 degrees QTc Int : 425 ms Normal sinus rhythm Normal ECG No previous ECGs available Referred By: Black Ram Electronically Signed By:ANDERSON GOLD MD
== END ==
LOC: HO.CARD 11:10
PROVIDERS: PCP Student in an Organized Health Care Education/Training Program; Visit Provider Surgery
DX: E66.01 Morbid (severe) obesity due to excess calories (principal); E03.9 Hypothyroidism, unspecified; K21.9 Gastro-esophageal reflux disease without esophagitis
CPT/HCPCS: 93005

== ENCOUNTER → 2024-08-05 11:16 | Outpatient (BNV) | payer OTHER, SELFPAY | PROVIDERS: PCP Student in an Organized Health Care Education/Training Program; Visit Provider Internal Medicine Cardiovascular Disease | DX: E66.01 Morbid (severe) obesity due to excess calories (principal); E03.9 Hypothyroidism, unspecified; K21.9 Gastro-esophageal reflux disease without esophagitis | CPT/HCPCS: 93010 ==

== ENCOUNTER 2024-08-31 09:36 | Outpatient (REF) | payer OTHER, SELFPAY ==
--- NOTE | ~2024-08-31 | FL_ITS ---
EXAMINATION: XR FLUOROSCOPY UPPER GI WITH AIR CLINICAL INFORMATION: Preoperative evaluation prior to bariatric surgery COMPARISON: None TECHNIQUE: Fluoroscopic air contrast upper GI examination was performed utilizing standard techniques with thin and thick barium and effervescent granules. Numerous spot images were obtained. FINDINGS: Anterior cervical hardware is noted at C6-C7. Dual and single contrast images of the esophagus demonstrate normal caliber, contour, and mucosal pattern. No evidence of stricture, mass, or ulcerations identified. Esophageal peristalsis is moderately disorganized. A small type I hiatal hernia is present. No significant gastroesophageal reflux was seen during the course of the examination and on reflux views. Dual contrast and single contrast images of the stomach demonstrated normal contour and mucosal pattern without evidence of mass, ulceration, or other abnormality. Contrast freely passed into the gastric antrum and duodenal bulb without delay. Single and air-contrast images of the duodenal bulb demonstrate no abnormality. The duodenal sweep has a normal appearance, course, and mucosal fold appearance. The imaged proximal jejunum has a normal fold pattern and caliber. FLUOROSCOPY TIME: 3 minutes 39 seconds Number of Spot Images: 8 Number of Cine: 10 DOSE AREA PRODUCT: 2838 uGy-m2 (microgray-meter squared) FL/FL upper GI w air IMPRESSION: 1. Moderately disorganized esophageal peristalsis. 2. Small type I hiatal hernia 3. Status post anterior cervical fusion at C6-C7. This procedure was performed by Aiden Holloway PA-C, and supervised by Dr. Parson Electronically signed by: Kyle Parson MD 09/01/2024 02:47 PM [facility]
== END 2024-08-31 09:37 | disposition home or self-care (01) ==
LOC: HO.XRAY 09:36
PROVIDERS: PCP Student in an Organized Health Care Education/Training Program; Visit Provider Surgery
DX: E66.01 Morbid (severe) obesity due to excess calories (principal); E03.9 Hypothyroidism, unspecified; K21.9 Gastro-esophageal reflux disease without esophagitis
CPT/HCPCS: 74246

== ENCOUNTER → 2024-08-31 09:38 | Outpatient (BNV) | payer OTHER, SELFPAY | PROVIDERS: PCP Student in an Organized Health Care Education/Training Program; Visit Provider Physician Assistant Surgical | DX: K22.4 Dyskinesia of esophagus (principal); K44.9 Diaphragmatic hernia without obstruction or gangrene | CPT/HCPCS: 74246; 74248 ==